=== PATIENT | male | born 1965 | race Caucasian/White ===

== ENCOUNTER 2023-12-05 23:29 | Emergency (ER) | payer OTHER ==
[2023-12-05 23:45] VITALS: RESP 18; TEMP 98
--- NOTE | 2023-12-06 00:24 | ED ---
General Adult HPI - General Chief complaint: Extremity Problem,Nontraumatic Stated complaint: ETOH, Swelling in ankles Time Seen by Provider: 12/05/23 23:41 Source: patient, RN notes reviewed, old records reviewed Mode of arrival: EMS Limitations: no limitations - History of Present Illness Initial comments: 58-year-old male presenting for evaluation of leg swelling, worse on the left, history of alcohol abuse. Patient is not complaining of chest pain or abdominal pain. Symptoms have been present for several months. He does admit to daily alcohol abuse. No fever. No dyspnea. - Related Data Previous Rx's Medication Instructions Recorded Cephalexin [Keflex] 500 mg PO Q6HR 10 Days #40 cap 12/06/23 Allergies Allergy/AdvReac Type Severity Reaction Status Date / Time No Known Allergies Allergy Verified 12/05/23 23:43 Review of Systems ROS Statement: Those systems with pertinent positive or pertinent negative responses have been documented in the HPI. ROS Other: All systems not noted in ROS Statement are negative. Past Medical History Past Medical History: No Reported History History of Any Multi-Drug Resistant Organisms: None Reported Additional Past Surgical History / Comment(s): teeth pulled Past Psychological History: No Psychological Hx Reported Smoking Status: Current every day smoker Past Alcohol Use History: Abuse, Daily, Heavy Past Drug Use History: Marijuana General Exam Limitations: no limitations General appearance: alert, appears intoxicated Head exam: Present: atraumatic, normocephalic Eye exam: Present: normal appearance, PERRL ENT exam: Present: normal exam Neck exam: Present: normal inspection. Absent: tenderness, meningismus Respiratory exam: Present: normal lung sounds bilaterally. Absent: respiratory distress, wheezes Cardiovascular Exam: Present: regular rate, normal rhythm GI/Abdominal exam: Present: soft. Absent: distended, tenderness Extremities exam: Present: pedal edema (Mild erythema, swelling worse on the left) Neurological exam: Present: alert, oriented X3, CN II-XII intact. Absent: motor sensory deficit Psychiatric exam: Present: normal affect, normal mood Skin exam: Present: warm, dry, intact Course Vital Signs 12/05/23 23:38 Temperature 98 F Pulse Rate 92 Respiratory 18 Rate Blood Pressure 150/87 O2 Sat by Pulse 97 Oximetry Medical Decision Making - Medical Decision Making Was pt. sent in by a medical professional or institution (, PA, [facility] CUTTER, urgent care, hospital, or snf...) When possible be specific @ -No Did you speak to anyone other than the patient for history (EMS, parent, family, police, friend...)? What history was obtained from this source @ -No Did you review nursing and triage notes (agree or disagree)? Why? @ -I reviewed and agree with nursing and triage notes Were old charts reviewed (outside hosp., previous admission, EMS record, old EKG, old radiological studies, urgent care reports/EKG's, snf records)? Report findings @ -No old charts were reviewed Differential Diagnosis DVT, cellulitis, chronic venous stasis EKG interpreted by me (3pts min.). @ -As above X-rays interpreted by me (1pt min.). @ -None done CT interpreted by me (1pt min.). @ -None done U/S interpreted by me (1pt. min.). @ -Ultrasound negative for DVT. What testing was considered but not performed or refused? (CT, X-rays, U/S, labs)? Why? @ -None What meds were considered but not given or refused? Why? @ -None Did you discuss the management of the patient with other professionals (professionals i.e. , PA, [facility] CUTTER, lab, RT, psych nurse, criminal justice social worker, art specialist, teacher, sewage reticulation drafting officer, field case manager)? Give summary @ -No Was smoking cessation discussed for >3mins.? @ -No Was critical care preformed (if so, how long)? @ -No Were there social determinants of health that impacted care today? How? (Homelessness, low income, unemployed, alcoholism, drug addiction, transportation, low edu. Level, literacy, decrease access to med. care, senior living, rehab)? @ -No Was there de-escalation of care discussed even if they declined (Discuss DNR or withdrawal of care, Hospice)? DNR status @ -No What co-morbidities impacted this encounter? (DM, HTN, Smoking, COPD, CAD, Cancer, CVA, ARF, Chemo, Hep., AIDS, mental health diagnosis, sleep apnea, morbid obesity)? @Daily alcohol abuse Was patient admitted / discharged? Hospital course, mention meds given and route, prescriptions, significant lab abnormalities, going to OR and other pertinent info. @Patient with leg swelling, erythema, normal laboratory testing, ultrasound negative. Patient will be covered for cellulitis and should follow closely with his primary care provider. Undiagnosed new problem with uncertain prognosis? @ -No Drug Therapy requiring intensive monitoring for toxicity (Heparin, Nitro, Insulin, Cardizem)? @ -No Were any procedures done? @ -No Diagnosis/symptom? @ -Cellulitis Acute, or Chronic, or Acute on Chronic? @ -Acute Uncomplicated (without systemic symptoms) or Complicated (systemic symptoms)? @ -Default Side effects of treatment? @ -No Exacerbation, Progression, or Severe Exacerbation? @ -No Poses a threat to life or bodily function? How? (Chest pain, [place], AL, pneumonia, PE, COPD, DKA, ARF, appy, cholecystitis, CVA, Diverticulitis, Homicidal, Suicidal, threat to staff... and all critical care pts) @ -No - Lab Data Result diagrams: 12/06/23 00:25 12/06/23 00:25 Lab Results 12/06/23 12/06/23 12/06/23 Range/Units 00:25 00:25 00:25 WBC 7.9 (3.8-10.6) k/uL RBC 4.58 (4.30-5.90) m/uL Hgb 14.8 (13.0-17.5) gm/dL Hct 45.9 (39.0-53.0) % MCV 100.2 H (80.0-100.0) fL MCH 32.2 (25.0-35.0) pg MCHC 32.2 (31.0-37.0) g/dL RDW 13.8 (11.5-15.5) % Plt Count 132 L (150-450) k/uL MPV 8.9 Neutrophils % 47 % Lymphocytes % 42 % Monocytes % 6 % Eosinophils % 2 % Basophils % 2 % Neutrophils # 3.7 (1.3-7.7) k/uL Lymphocytes # 3.3 (1.0-4.8) k/uL Monocytes # 0.4 (0-1.0) k/uL Eosinophils # 0.2 (0-0.7) k/uL Basophils # 0.1 (0-0.2) k/uL Macrocytosis Slight PT 11.9 (10.0-12.5) sec INR 1.1 (<1.2) APTT 26.2 (22.0-30.0) sec Sodium 139 (137-145) mmol/L Potassium 3.8 (3.5-5.1) mmol/L Chloride 108 H (98-107) mmol/L Carbon Dioxide 19 L (22-30) mmol/L Anion Gap 12 mmol/L BUN 7 L (9-20) mg/dL Creatinine 0.80 (0.66-1.25) mg/dL Est GFR (CKD-EPI)AfAm >90 (>60 ml/min/1.73 sqM) Est GFR (CKD-EPI)NonAf >90 (>60 ml/min/1.73 sqM) Glucose 82 (74-99) mg/dL Calcium 9.4 (8.4-10.2) mg/dL Total Bilirubin 0.9 (0.2-1.3) mg/dL AST 91 H (17-59) U/L ALT 37 (4-49) U/L Alkaline Phosphatase 80 (38-126) U/L Total Protein 6.9 (6.3-8.2) g/dL Albumin 3.7 (3.5-5.0) g/dL Disposition Clinical Impression: Cellulitis Disposition: HOME SELF-CARE Condition: Fair Instructions (If sedation given, give patient instructions): Cellulitis (ED) Prescriptions: Cephalexin [Keflex] 500 mg PO Q6HR 10 Days #40 cap Is patient prescribed a controlled substance at d/c from ED?: No Referrals: None,Stated [Primary Care Provider] - 1-2 days Time of Disposition: 02:02
[2023-12-06 00:37] LABS: Basophils # (A) 0.1 k/uL (0-0.2); Basophils % (A) 2 %; Eosinophils # (A) 0.2 k/uL (0-0.7); Eosinophils % (A) 2 %; HCT 45.9 % (39.0-53.0); HGB 14.8 gm/dL (13.0-17.5); Lymphocytes # (A) 3.3 k/uL (1.0-4.8); Lymphocytes % (A) 42 %; MCH 32.2 pg (25.0-35.0); MCHC 32.2 g/dL (31.0-37.0); MCV 100.2 fL (80.0-100.0); Macrocytosis Slight; Mean Platelet Volume 8.9; Monocytes # (A) 0.4 k/uL (0-1.0); Monocytes % (A) 6 %; Neutrophils # (A) 3.7 k/uL (1.3-7.7); Neutrophils % (A) 47 %; Platelet Count 132 k/uL (150-450); RBC 4.58 m/uL (4.30-5.90); RDW 13.8 % (11.5-15.5); WBC 7.9 k/uL (3.8-10.6)
[2023-12-06 00:44] LABS: Chloride 108 mmol/L (98-107)
[2023-12-06 00:46] LABS: ALT 37 U/L (4-49); AST 91 U/L (17-59); African American GFR (CKD) >90 (>60 ml/min/1.73 sqM); Albumin 3.7 g/dL (3.5-5.0); Alkaline Phosphatase 80 U/L (38-126); Anion Gap 12 mmol/L; Blood Urea Nitrogen 7 mg/dL (9-20); Calcium 9.4 mg/dL (8.4-10.2); Carbon Dioxide 19 mmol/L (22-30); Glucose 82 mg/dL (74-99); Non-African American GFR(CKD) >90 (>60 ml/min/1.73 sqM); Potassium 3.8 mmol/L (3.5-5.1); Sodium 139 mmol/L (137-145); Total Bilirubin 0.9 mg/dL (0.2-1.3); Total Protein 6.9 g/dL (6.3-8.2)
[2023-12-06 01:03] LABS: INR 1.1 (<1.2); Partial Thromboplastin Time 26.2 sec (22.0-30.0); Prothrombin Time 11.9 sec (10.0-12.5)
--- NOTE | 2023-12-06 01:33 | US ---
EXAM: US Duplex Left Lower Extremity Veins CLINICAL HISTORY: ITS.REASON US Reason: swelling TECHNIQUE: Real-time duplex ultrasound scan of the left lower extremity veins integrating B-mode two-dimensional vascular structure, Doppler spectral analysis, color flow Doppler imaging and compression. COMPARISON: No previous studies. FINDINGS: Deep veins: Imaging of the left lower extremity deep venous system revealed no deep venous thrombosis including the left common femoral vein, left superficial femoral vein, the left popliteal vein and the proximal calf veins. Superficial veins: Unremarkable. No thrombus in the visualized great saphenous vein. Soft tissues: No acute findings. No Sampson's cyst. IMPRESSION: No deep venous thrombosis left lower extremity.
[2023-12-06 02:55] VITALS: BP 136/76; PULSE 87
== END 2023-12-06 02:19 | disposition home or self-care (01) ==
LOC: EC 23:29
DX: L03.116 Cellulitis of left lower limb (principal); F17.200 Nicotine dependence, unspecified, uncomplicated; F12.90 Cannabis use, unspecified, uncomplicated
CPT/HCPCS: 36415; 80053; 85025; 85610; 85730; 99285

== ENCOUNTER 2024-03-23 18:38 | Inpatient (IN) | payer OTHER ==
[2024-03-23] MEDS: NOREPINEPHRINE 4 MG in SODIUM CHLORIDE 0.9% 250 ML IV ONE (18:48)
[2024-03-23] MEDS: SODIUM CHLORIDE 0.9% 1,000 ML IV STA ×2 (18:48→20:03)
--- NOTE | 2024-03-23 18:59 | ED ---
CPR HPI - General Chief Complaint: Cardiac Arrest/CPR Stated Complaint: cardiac arrest Source: EMS, RN notes reviewed, old records reviewed Mode of arrival: EMS Limitations: no limitations, altered mental status, physical limitation - History of Present Illness Initial Comments: This is a 58-year-old male to the ER for evaluation today for evaluation of sudden cardiac arrest. Brought in by EMS with pulse pulseless apneic cardiac arrest was given ACLS protocol in the field had return of spontaneous circulation around 1520 minutes upwards of 25 minutes. Patient was hanging out with some friends when he had an episode of falling he fell down may have hit his head unsure the bystanders were unaware if patient was unresponsive prior to the fall or not patient has a long medical history, patient does not seek medical care, patient does have history of alcohol, cigarette smoking, recent exposure to coronavirus MD Complaint: found unresponsive, stopped breathing, collapsed during rest -: hour(s) Place: home Bystander CPR Performed: Yes AED Applied by Bystander/President And Chief Commercial Officer: Yes Shock Advised: No Initial Findings in the Field: unresponsive, agonal ROSC in the Field: Yes Associated Injuries: Yes Associated Symptoms: abdominal pain, shortness of breath, palpitations Treatments Prior to Arrival: intubation, other airway device - Related Data Home Medications Medication Instructions Recorded Confirmed Budesonide/Formoterol Fumarate 2 puff INHALATION RT-BID 03/23/24 03/23/24 [Symbicort 160-4.5 Mcg Inhaler] Furosemide [Lasix] 20 mg PO DAILY 03/23/24 03/23/24 Potassium Chloride ER [K-Dur 20] 20 meq PO DAILY 03/23/24 03/23/24 Allergies Allergy/AdvReac Type Severity Reaction Status Date / Time No Known Allergies Allergy Verified 03/23/24 19:45 Review of Systems ROS Statement: Those systems with pertinent positive or pertinent negative responses have been documented in the HPI. ROS Other: All systems not noted in ROS Statement are negative. Past Medical History Past Medical History: No Reported History History of Any Multi-Drug Resistant Organisms: None Reported Additional Past Surgical History / Comment(s): teeth pulled Past Psychological History: No Psychological Hx Reported Smoking Status: Current every day smoker Past Alcohol Use History: Abuse, Daily, Heavy Past Drug Use History: Marijuana General Exam Limitations: altered mental status, physical limitation General appearance: anxious, in distress Head exam: Present: atraumatic, normocephalic, normal inspection Eye exam: Present: normal appearance, PERRL, EOMI. Absent: scleral icterus, conjunctival injection, periorbital swelling ENT exam: Present: normal exam, mucous membranes moist Neck exam: Present: normal inspection. Absent: tenderness, meningismus, lymphadenopathy Respiratory exam: Present: normal lung sounds bilaterally, wheezes. Absent: respiratory distress, rales, rhonchi, stridor Cardiovascular Exam: Present: regular rate, normal rhythm, normal heart sounds. Absent: systolic murmur, diastolic murmur, rubs, gallop, clicks GI/Abdominal exam: Present: soft, normal bowel sounds. Absent: distended, tenderness, guarding, rebound, rigid Extremities exam: Present: normal inspection, full ROM, normal capillary refill. Absent: tenderness, pedal edema, joint swelling, calf tenderness Back exam: Present: normal inspection Neurological exam: Present: alert, oriented X3, CN II-XII intact Psychiatric exam: Present: normal affect, normal mood Skin exam: Present: warm, dry, intact, normal color. Absent: rash Course Vital Signs 03/23/24 03/23/24 03/23/24 18:41 18:47 18:50 Temperature Pulse Rate 42 L 68 92 Respiratory 6 L 22 Rate Blood Pressure 45/23 67/42 100/63 O2 Sat by Pulse 56 L 99 Oximetry Fraction of Inspired Oxygen (FIO2) 03/23/24 03/23/24 03/23/24 18:55 19:00 19:05 Temperature 97.4 F L Pulse Rate 102 H 104 H Respiratory 20 22 Rate Blood Pressure 125/73 125/73 131/71 O2 Sat by Pulse 99 100 Oximetry Fraction of Inspired Oxygen (FIO2) 03/23/24 03/23/24 03/23/24 19:10 19:25 19:26 Temperature Pulse Rate 103 H 98 Respiratory 21 23 Rate Blood Pressure 131/71 99/65 O2 Sat by Pulse 100 100 Oximetry Fraction of 100 Inspired Oxygen (FIO2) 03/23/24 03/23/24 03/23/24 19:30 19:35 19:40 Temperature Pulse Rate 97 105 H 94 Respiratory 18 13 27 H Rate Blood Pressure 99/64 94/60 89/48 O2 Sat by Pulse 100 99 100 Oximetry Fraction of Inspired Oxygen (FIO2) 03/23/24 03/23/24 03/23/24 19:45 19:50 19:55 Temperature Pulse Rate 94 93 94 Respiratory 47 H 23 23 Rate Blood Pressure 79/57 77/51 74/51 O2 Sat by Pulse 100 99 100 Oximetry Fraction of Inspired Oxygen (FIO2) 03/23/24 03/23/24 03/23/24 20:00 20:05 20:10 Temperature Pulse Rate 93 92 95 Respiratory 21 14 31 H Rate Blood Pressure 75/47 70/48 76/51 O2 Sat by Pulse 100 99 98 Oximetry Fraction of Inspired Oxygen (FIO2) 03/23/24 03/23/24 03/23/24 20:15 20:20 20:25 Temperature Pulse Rate 94 96 96 Respiratory 24 21 20 Rate Blood Pressure 77/50 78/52 80/51 O2 Sat by Pulse 100 100 100 Oximetry Fraction of Inspired Oxygen (FIO2) 03/23/24 03/23/24 03/23/24 20:30 20:35 20:40 Temperature Pulse Rate 95 96 96 Respiratory 23 20 20 Rate Blood Pressure 84/54 80/50 81/52 O2 Sat by Pulse 99 99 100 Oximetry Fraction of Inspired Oxygen (FIO2) 03/23/24 03/23/24 03/23/24 20:45 20:50 21:10 Temperature Pulse Rate 96 95 97 Respiratory 20 20 24 Rate Blood Pressure 88/53 81/55 81/55 O2 Sat by Pulse 100 100 100 Oximetry Fraction of Inspired Oxygen (FIO2) 03/23/24 03/23/24 03/23/24 21:15 21:20 21:25 Temperature Pulse Rate 97 96 98 Respiratory 20 24 24 Rate Blood Pressure 80/50 78/47 81/53 O2 Sat by Pulse 100 100 99 Oximetry Fraction of Inspired Oxygen (FIO2) 03/23/24 03/23/24 03/23/24 21:30 21:35 21:40 Temperature Pulse Rate 99 100 101 H Respiratory 19 17 16 Rate Blood Pressure 78/53 82/55 84/53 O2 Sat by Pulse 100 100 99 Oximetry Fraction of Inspired Oxygen (FIO2) 03/23/24 03/23/24 03/23/24 21:45 21:50 21:55 Temperature Pulse Rate 101 H 102 H 104 H Respiratory 18 13 24 Rate Blood Pressure 87/63 93/53 85/58 O2 Sat by Pulse 100 100 100 Oximetry Fraction of Inspired Oxygen (FIO2) 03/23/24 03/23/24 22:00 22:08 Temperature 96.9 F L Pulse Rate 103 H 110 H Respiratory 20 20 Rate Blood Pressure 85/47 85/47 O2 Sat by Pulse 100 96 Oximetry Fraction of 100 Inspired Oxygen (FIO2) - Reevaluation(s) Reevaluation #1: 03/24/24 12:30 Record is reviewed Reevaluation #2: 03/24/24 12:30 Patient symptoms are unchanged Reevaluation #3: 03/24/24 12:30 Informed of results and questions answered Reevaluation #4: Was pt. sent in by a medical professional or institution (, [facility], [facility], urgent care, hospital, or longterm...) When possible be specific @ -no Did you speak to anyone other than the patient for history (EMS, parent, family, police, friend...)? What history was obtained from this source @ -no Did you review nursing and triage notes (agree or disagree)? Why? @ -agree Are old charts reviewed (outside hosp., previous admission, EMS record, old EKG, old radiological studies, urgent care reports/EKG's, longterm records)? Report findings @ -yes Differential Diagnosis (chest pain, altered mental status, abdominal pain women, abdominal pain men, vaginal bleeding, weakness, fever, dyspnea, syncope, headac he, dizziness, GI bleed, back pain, seizure, CVA, palpatations, mental health, musculoskeletal)? @ -prior EKG interpreted by me (3pts min.). @ -yes X-rays interpreted by me (1pt min.). @ -yes negative for acute disease CT interpreted by me (1pt min.). @ -Yes negative for acute disease U/S interpreted by me (1pt. min.). @ -no What testing was considered but not performed or refused? (CT, X-rays, U/S, labs)? Why? @ -none What meds were considered but not given or refused? Why? @ -none Did you discuss the management of the patient with other professionals (professionals i.e. [facility] Sanchez, [facility], lab, RT, psych nurse, home health care social worker, mechanical service representative, teacher, preventive medicine officer, case management assistant)? Give summary @ -no Was smoking cessation discussed for >3mins.? @ -no Was critical care preformed (if so, how long)? @ -yes31 Were there social determinants of health that impacted care today? How? (Homelessness, low income, unemployed, alcoholism, drug addiction, transportation, low edu. Level, literacy, decrease access to med. care, long term, rehab)? @ -none Was there de-escalation of care discussed even if they declined (Discuss DNR or withdrawal of care, Hospice)? DNR status @ -no What co-morbidities impacted this encounter? (DM, HTN, Smoking, COPD, CAD, Cancer, CVA, ARF, Chemo, Hep., AIDS, mental health diagnosis, sleep apnea, morbid obesity)? @ -none Was patient admitted / discharged? Hospital course, mention meds given and route, prescriptions, significant lab abnormalities, going to OR and other pertinent info. @ - 58 male to ER for evaluation of prehospital cardiac arrest with return of spontaneous circulation. Patient has recent coronavirus exposure per family at bedside, patient had what they believe is a fall unsure if it was a trip and fall or if patient passed out before falling prompting call to EMS as he was unresponsive. Patient did return spontaneous circulation and her to the hospital and has maintained pulses here in the emergency department with mild neurological activity requiring sedation Admitted Undiagnosed new problem with uncertain prognosis? @ -no Drug Therapy requiring intensive monitoring for toxicity (Heparin, Nitro, Insulin, Cardizem)? @ -no Were any procedures done? @ -no Diagnosis/symptom? @ -Cardiopulmonary arrest Acute, or Chronic, or Acute on Chronic? @ -Acute Uncomplicated (without systemic symptoms) or Complicated (systemic symptoms)? @ -Complicated Side effects of treatment? @ -no Exacerbation, Progression, or Severe Exacerbation? @ -exacerbation Poses a threat to life or bodily function? How? (Chest pain, [place], [place], pneumonia, PE, COPD, DKA, ARF, appy, cholecystitis, CVA, Diverticulitis, Homicidal, Suicidal, threat to staff... and all critical care pts) @ -yes - Consultations Consultation #1: With ICU patient accepted to the ICU for admission Procedures - Central Line Placement Right IJ Consent Obtained: verbal consent Patient Placed on Monitor/Pulse Ox: Yes Prep: mask, gown, gloves Central Line Prep: Povidone-Iodine 1% Local Anesthesia Used: Lidocaine 1% Ultrasound Used for Placement: Yes Central Line Lumen Inserted: triple Bloods Obtained for Lab: Yes Central Line Position: good blood return, all ports aspirated, flushed, capped Dressing Applied: Tegaderm Patient Tolerated Procedure: well Complications: none - Intubation Sedative: Versed Laryngoscope: Eliza Size: 4 ET Tube Size: 7.5 Tube Secured Location: teeth Tube Placement Confirmation: visualized tube passing through cords, equal breath sounds bilaterally Patient Tolerated Procedure: well Intubation Complications: none Medical Decision Making - Medical Decision Making 58 male to ER for evaluation of prehospital cardiac arrest with return of spontaneous circulation. Patient has recent coronavirus exposure per family at bedside, patient had what they believe is a fall unsure if it was a trip and fall or if patient passed out before falling prompting call to EMS as he was unresponsive. Patient did return spontaneous circulation and her to the hospital and has maintained pulses here in the emergency department with mild neurological activity requiring sedation - Lab Data Result diagrams: 03/24/24 03:50 03/24/24 07:17 Lab Results 03/23/24 03/23/24 03/23/24 Range/Units 18:57 19:01 19:01 WBC 6.9 (3.8-10.6) k/uL RBC 4.39 (4.30-5.90) m/uL Hgb 14.5 (13.0-17.5) gm/dL Hct 49.1 (39.0-53.0) % MCV 111.7 H (80.0-100.0) fL MCH 32.9 (25.0-35.0) pg MCHC 29.5 L (31.0-37.0) g/dL RDW 13.8 (11.5-15.5) % Plt Count 193 (150-450) k/uL MPV 10.1 Neutrophils % (Manual) 50 % Lymphocytes % (Manual) 26 % Monocytes % (Manual) 24 % Eosinophils % (Manual) 1 % Myelocytes % 1 % Neutrophils # (Manual) 3.45 (1.3-7.7) k/uL Lymphocytes # (Manual) 1.79 (1.0-4.8) k/uL Monocytes # (Manual) 1.66 H (0-1.0) k/uL Eosinophils # (Manual) 0.07 (0-0.7) k/uL Myelocytes # (Manual) 0.07 H (0) k/uL Nucleated RBCs 3 H (0-0) /100 WBC Manual Slide Review Performed Hypochromasia Marked Macrocytosis Marked A PT 11.8 (10.0-12.5) sec INR 1.1 (<1.2) APTT 43.7 H (22.0-30.0) sec VBG pH (7.31-7.41) VBG pCO2 (37-51) mmHg VBG HCO3 (24-28) mmol/L Sodium (137-145) mmol/L Potassium (3.5-5.1) mmol/L Chloride (98-107) mmol/L Carbon Dioxide (22-30) mmol/L Anion Gap mmol/L BUN (9-20) mg/dL Creatinine (0.66-1.25) mg/dL Est GFR (CKD-EPI)AfAm (>60 ml/min/1.73 sqM) Est GFR (CKD-EPI)NonAf (>60 ml/min/1.73 sqM) Glucose (74-99) mg/dL Lactic Ac Sepsis Rflx Plasma Lactic Acid Audi (0.7-2.0) mmol/L Calcium (8.4-10.2) mg/dL Phosphorus (2.5-4.5) mg/dL Magnesium (1.6-2.3) mg/dL Total Bilirubin (0.2-1.3) mg/dL AST (17-59) U/L ALT (4-49) U/L Alkaline Phosphatase (38-126) U/L Troponin I (0.000-0.034) ng/mL NT-Pro-B Natriuret Pep pg/mL Total Protein (6.3-8.2) g/dL Albumin (3.5-5.0) g/dL Urine Color Urine Appearance (Clear) Urine pH (5.0-8.0) Ur Specific [place] (1.001-1.035) Urine Protein (Negative) Urine Glucose (UA) (Negative) Urine Ketones (Negative) Urine Blood (Negative) Urine Nitrite (Negative) Urine Bilirubin (Negative) Urine Urobilinogen (<2.0) mg/dL Ur Leukocyte Esterase (Negative) Urine RBC (0-5) /hpf Urine WBC (0-5) /hpf Ur Squamous Epith Cells (0-4) /hpf Amorphous Sediment (None) /hpf Urine Bacteria (None) /hpf Urine Mucus (None) /hpf Influenza Type A (PCR) Not Detected (Not Detectd) Influenza Type B (PCR) Not Detected (Not Detectd) RSV (PCR) Not Detected (Not Detectd) SARS-CoV-2 (PCR) Detected A (Not Detectd) 03/23/24 03/23/24 03/23/24 Range/Units 19:01 19:01 19:09 WBC (3.8-10.6) k/uL RBC (4.30-5.90) m/uL Hgb (13.0-17.5) gm/dL Hct (39.0-53.0) % MCV (80.0-100.0) fL MCH (25.0-35.0) pg MCHC (31.0-37.0) g/dL RDW (11.5-15.5) % Plt Count (150-450) k/uL MPV Neutrophils % (Manual) % Lymphocytes % (Manual) % Monocytes % (Manual) % Eosinophils % (Manual) % Myelocytes % % Neutrophils # (Manual) (1.3-7.7) k/uL Lymphocytes # (Manual) (1.0-4.8) k/uL Monocytes # (Manual) (0-1.0) k/uL Eosinophils # (Manual) (0-0.7) k/uL Myelocytes # (Manual) (0) k/uL Nucleated RBCs (0-0) /100 WBC Manual Slide Review Hypochromasia Macrocytosis PT (10.0-12.5) sec INR (<1.2) APTT (22.0-30.0) sec VBG pH (7.31-7.41) VBG pCO2 (37-51) mmHg VBG HCO3 (24-28) mmol/L Sodium 138 (137-145) mmol/L Potassium 6.7 H* (3.5-5.1) mmol/L Chloride 104 (98-107) mmol/L Carbon Dioxide 15 L (22-30) mmol/L Anion Gap 19 mmol/L BUN 51 H (9-20) mg/dL Creatinine 2.05 H (0.66-1.25) mg/dL Est GFR (CKD-EPI)AfAm 40 (>60 ml/min/1.73 sqM) Est GFR (CKD-EPI)NonAf 35 (>60 ml/min/1.73 sqM) Glucose 100 H (74-99) mg/dL Lactic Ac Sepsis Rflx Plasma Lactic Acid Audi 11.3 H* (0.7-2.0) mmol/L Calcium 11.9 H (8.4-10.2) mg/dL Phosphorus 12.9 H* (2.5-4.5) mg/dL Magnesium 3.1 H (1.6-2.3) mg/dL Total Bilirubin 0.9 (0.2-1.3) mg/dL AST 116 H (17-59) U/L ALT 39 (4-49) U/L Alkaline Phosphatase 60 (38-126) U/L Troponin I 0.106 H* (0.000-0.034) ng/mL NT-Pro-B Natriuret Pep 4650 pg/mL Total Protein 6.2 L (6.3-8.2) g/dL Albumin 3.1 L (3.5-5.0) g/dL Urine Color Urine Appearance (Clear) Urine pH (5.0-8.0) Ur Specific [place] (1.001-1.035) Urine Protein (Negative) Urine Glucose (UA) (Negative) Urine Ketones (Negative) Urine Blood (Negative) Urine Nitrite (Negative) Urine Bilirubin (Negative) Urine Urobilinogen (<2.0) mg/dL Ur Leukocyte Esterase (Negative) Urine RBC (0-5) /hpf Urine WBC (0-5) /hpf Ur Squamous Epith Cells (0-4) /hpf Amorphous Sediment (None) /hpf Urine Bacteria (None) /hpf Urine Mucus (None) /hpf Influenza Type A (PCR) (Not Detectd) Influenza Type B (PCR) (Not Detectd) RSV (PCR) (Not Detectd) SARS-CoV-2 (PCR) (Not Detectd) 03/23/24 03/23/24 03/23/24 Range/Units 19:16 19:42 19:44 WBC (3.8-10.6) k/uL RBC (4.30-5.90) m/uL Hgb (13.0-17.5) gm/dL Hct (39.0-53.0) % MCV (80.0-100.0) fL MCH (25.0-35.0) pg MCHC (31.0-37.0) g/dL RDW (11.5-15.5) % Plt Count (150-450) k/uL MPV Neutrophils % (Manual) % Lymphocytes % (Manual) % Monocytes % (Manual) % Eosinophils % (Manual) % Myelocytes % % Neutrophils # (Manual) (1.3-7.7) k/uL Lymphocytes # (Manual) (1.0-4.8) k/uL Monocytes # (Manual) (0-1.0) k/uL Eosinophils # (Manual) (0-0.7) k/uL Myelocytes # (Manual) (0) k/uL Nucleated RBCs (0-0) /100 WBC Manual Slide Review Hypochromasia Macrocytosis PT (10.0-12.5) sec INR (<1.2) APTT (22.0-30.0) sec VBG pH 6.90 L* (7.31-7.41) VBG pCO2 78 H* (37-51) mmHg VBG HCO3 15 L (24-28) mmol/L Sodium (137-145) mmol/L Potassium (3.5-5.1) mmol/L Chloride (98-107) mmol/L Carbon Dioxide (22-30) mmol/L Anion Gap mmol/L BUN (9-20) mg/dL Creatinine (0.66-1.25) mg/dL Est GFR (CKD-EPI)AfAm (>60 ml/min/1.73 sqM) Est GFR (CKD-EPI)NonAf (>60 ml/min/1.73 sqM) Glucose (74-99) mg/dL Lactic Ac Sepsis Rflx Y Plasma Lactic Acid Audi (0.7-2.0) mmol/L Calcium (8.4-10.2) mg/dL Phosphorus (2.5-4.5) mg/dL Magnesium (1.6-2.3) mg/dL Total Bilirubin (0.2-1.3) mg/dL AST (17-59) U/L ALT (4-49) U/L Alkaline Phosphatase (38-126) U/L Troponin I (0.000-0.034) ng/mL NT-Pro-B Natriuret Pep pg/mL Total Protein (6.3-8.2) g/dL Albumin (3.5-5.0) g/dL Urine Color Yellow Urine Appearance Cloudy (Clear) Urine pH 5.5 (5.0-8.0) Ur Specific [place] 1.015 (1.001-1.035) Urine Protein 1+ H (Negative) Urine Glucose (UA) Negative (Negative) Urine Ketones Negative (Negative) Urine Blood Negative (Negative) Urine Nitrite Negative (Negative) Urine Bilirubin Negative (Negative) Urine Urobilinogen <2.0 (<2.0) mg/dL Ur Leukocyte Esterase Negative (Negative) Urine RBC 2 (0-5) /hpf Urine WBC 2 (0-5) /hpf Ur Squamous Epith Cells 1 (0-4) /hpf Amorphous Sediment Rare H (None) /hpf Urine Bacteria Occasional H (None) /hpf Urine Mucus Rare H (None) /hpf Influenza Type A (PCR) (Not Detectd) Influenza Type B (PCR) (Not Detectd) RSV (PCR) (Not Detectd) SARS-CoV-2 (PCR) (Not Detectd) - EKG Data -: EKG Interpreted by Me (EKG is sinus 87 KS 120 QRS 98 QTc 383) - Radiology Data Radiology results: report reviewed (CT Brain negative for acute disease chest x- ray positive ET tube positive central line), image reviewed Critical Care Time Critical Care Time: Yes Total Critical Care Time: 31 Disposition Clinical Impression: Acute respiratory failure, Cardiac arrest, Cardiopulmonary arrest, Hypoxia, Hypotension Disposition: ADMITTED IP TO THIS [facility] Condition: Critical Is patient prescribed a controlled substance at d/c from ED?: No
[2024-03-23] MEDS: SODIUM CHLORIDE 0.9% 1,000 ML IV ONE (19:00)
[2024-03-23 19:20] LABS: African American GFR (CKD) 40 (>60 ml/min/1.73 sqM); Albumin 3.1 g/dL (3.5-5.0); Anion Gap 19 mmol/L; Blood Urea Nitrogen 51 mg/dL (9-20); Calcium 11.9 mg/dL (8.4-10.2); Carbon Dioxide 15 mmol/L (22-30); Chloride 104 mmol/L (98-107); Glucose 100 mg/dL (74-99); Non-African American GFR(CKD) 35 (>60 ml/min/1.73 sqM); Sodium 138 mmol/L (137-145); Total Bilirubin 0.9 mg/dL (0.2-1.3); Total Protein 6.2 g/dL (6.3-8.2)
[2024-03-23 19:29] LABS: NT-Pro-B-Type Natriuretic Pept 4650 pg/mL
[2024-03-23 19:41] LABS: Amorphous Sediment,Urine Rare /hpf; Appearance,Urine Cloudy (Clear); Bacteria,Urine Occasional /hpf; Bilirubin,Urine Negative (Negative); Blood,Urine Negative (Negative); Color,Urine Yellow; Glucose,Urine (UA) Negative (Negative); Ketones,Urine Negative (Negative); Leukocyte Esterase,Urine Negative (Negative); Mucus,Urine Rare /hpf; Nitrite,Urine Negative (Negative); PH, Urine 5.5 (5.0-8.0); Protein,Urine 1+ (Negative); RBC,Urine 2 /hpf (0-5); Specific Gravity,Urine 1.015 (1.001-1.035); Squamous Epithelial Cell,Urine 1 /hpf (0-4); Urobilinogen,Urine <2.0 mg/dL (<2.0); WBC,Urine 2 /hpf (0-5)
[2024-03-23 19:43] LABS: AST 116 U/L (17-59); Phosphorus 12.9 mg/dL (2.5-4.5); Potassium 6.7 mmol/L (3.5-5.1)
[2024-03-23 19:44] LABS: ALT 39 U/L (4-49); Alkaline Phosphatase 60 U/L (38-126); HCT 49.1 % (39.0-53.0); HGB 14.5 gm/dL (13.0-17.5); Hypochromasia Marked; MCH 32.9 pg (25.0-35.0); MCHC 29.5 g/dL (31.0-37.0); MCV 111.7 fL (80.0-100.0); Macrocytosis Marked; Magnesium 3.1 mg/dL (1.6-2.3); Mean Platelet Volume 10.1; RBC 4.39 m/uL (4.30-5.90); RDW 13.8 % (11.5-15.5)
[2024-03-23] MEDS ORDERED: NALOXONE 0.4 MG/ML 1 ML VIAL IV PRN (19:49)
[2024-03-23] MEDS ORDERED: LORazepam 2 MG/ML INJ IV PRN ×2 (19:49)
[2024-03-23] MEDS ORDERED: MORPHINE SULFATE 2 MG/ML SYRINGE IV PRN (19:49)
--- NOTE | 2024-03-23 19:50 | XR ---
EXAMINATION TYPE: XR chest 1V portable DATE OF EXAM: 03/23/2024 Comparison: None Clinical History: 58-year-old male intubation Findings: The tip of the ET tube is noted just below the level of the thoracic inlet. Consider slight further a dvancement by approximately 2.5 cm. NG tube in the further advanced by approximately 8 cm at the side hole is above the GE junction and the tip is just below the GE junction. Diffuse patchy interstitial opacities throughout. Heart upper limits of normal in size. Impression: 1. ET tube by 2.5 cm in reassessment follow-up. Currently, the tip is just below the thoracic inlet l evel. 2. Advance the NG tube by 8 cm so that the sidehole enters the stomach. 3. Diffuse interstitial and patchy opacities. Correlate as to etiology. Some considerations include a typical pneumonias, interstitial pneumonitis, hypersensitivity pneumonitis, aspiration, multifocal pn eumonia, and patchy pulmonary edema.
[2024-03-23] MEDS: DEXTROSE 5%-0.45% NACL 1,000 ML IV SCH (20:12)
[2024-03-23] MEDS: MIDAZOLAM 1 MG/ML 5 ML VIAL IV STA ×2 (20:18→21:11)
[2024-03-23 20:22] LABS: INR 1.1 (<1.2); Partial Thromboplastin Time 43.7 sec (22.0-30.0); Prothrombin Time 11.8 sec (10.0-12.5)
[2024-03-23 20:25] LABS: Eosinophils # (M) 0.07 k/uL (0-0.7); Lymphocytes # (M) 1.79 k/uL (1.0-4.8); Monocytes # (M) 1.66 k/uL (0-1.0); Myelocytes # (M) 0.07 k/uL (0); Myelocytes % 1 %; Neutrophils # (M) 3.45 k/uL (1.3-7.7); Neutrophils % (M) 50 %; Nucleated Red Blood Cells 3 /100 WBC (0-0); Total Cells Counted 200; WBC 6.9 k/uL (3.8-10.6)
[2024-03-23 20:31] LABS: Platelet Count 193 k/uL (150-450)
[2024-03-23] MEDS: IPRATROPIUM-ALBUTEROL 3 ML NEB INHALATION SCH (20:36)
[2024-03-23 21:04] LABS: VBG PH 6.9 (7.31-7.41)
--- NOTE | 2024-03-23 21:46 | CT ---
EXAMINATION TYPE: CT brain darell handy DATE OF EXAM: 03/23/2024 COMPARISON: None HISTORY: 58-year-old female with confusion, post cardiac arrest, ams. CT DLP: 1377.4 mGycm Automated exposure control for dose reduction was used. Technique: Examination of the head was done in axial plane without intravenous contrast. Coronal and sagittal reconstructions performed. CT of the cervical spine was obtained in axial plane without intravenous injection of contrast mater ial. Coronal and sagittal reformatted images were obtained from the axial views for evaluation of f ractures, spinal alignment and canal. FINDINGS: Head: Possible subtle loss of castillo-white matter differentiation and superior left precentral high-risk, axi al image 44 and lateral left frontal lobe, axial image 37 through 40. No evidence for acute intracranial hemorrhage, mass, mass effect, or extra-axial fluid collection. No hydrocephalus. No effacement of basal subarachnoid cisterns. Moderate to severe mucosal thickening throughout the paranasal sinuses. The patient is intubated. Mas toid air cells are pneumatized. Orbits and globes are intact. Secretions filling the posterior nasoph arynx. Cervical spine: Patient's head is turned towards the right. Reversal normal cervical lordosis. Mild to moderate spond ylitic change at mid to lower cervical spine. There is motion but no definite acute fracture or malal ignment seen. Moderate bilateral neural foraminal stenosis, right greater than left at C5-C6 and mild -to-moderate on the right at C6-C7. Emphysematous change in the visualized lungs. Sagittal and coronal reformatted images confirm above findings. COMBINED IMPRESSION: 1. Possible early loss of castillo-white matter differentiation along a couple areas in the left frontal lobe as mentioned above. Ischemia with early acute infarct not excluded at this time. Follow-up CT or MRI. 2. No evidence for acute intracranial hemorrhage, mass effect, or midline shift. 3. No acute fracture or malalignment of the cervical spine. Mild to moderate spondylotic change. COPD in the visualized upper lungs.
--- NOTE | 2024-03-23 22:21 | XR ---
EXAMINATION TYPE: XR chest 1V confirm line [facility] DATE OF EXAM: 03/23/2024 COMPARISON: Earlier today HISTORY: 58-year-old male for central line placement TECHNIQUE: Single frontal view of the chest is obtained. FINDINGS: ET tube tip at the level of the thoracic inlet. Advancement by 2.5 cm. NG tube tip is just below the GE junction level. Recommend further advancement into the stomach. Right IJ CVC tip at the cavoatrial junction. No pneumothorax. Multifocal patchy interstitial opacities persist. No pleural e ffusion. Heart normal size. IMPRESSION: 1. Advance the ET tube by 2.5 cm. 2. Advance the NG tube further by 8 cm so that the sidehole enters the stomach. 3. Right IJ CVC tip at the cavoatrial junction. 4. Ongoing diffuse interstitial and patchy infiltrates.
[2024-03-23 22:23] LABS: Glucose,Whole Blood 102 mg/dL (70-110)
[2024-03-23 22:57] LABS: ABG Base Excess -16.8 mmol/L; ABG HCO3 15 mmol/L (21-25); ABG Oxygen Saturation 99.6 % (94-97); ABG PCO2 62 mmHg (35-45); ABG TCO2 17 mmol/L (19-24); Allen Test Performed? Yes
[2024-03-23 23:01] LABS: ABG PO2 >420 mmHg (83-108)
[2024-03-24] MEDS: AZITHROMYCIN 500 MG in SODIUM CHLORIDE 0.9% 250 ML IVPB ONE (01:13)
[2024-03-24] MEDS: CALCIUM GLUCONATE IN NACL 1 GM in SALINE 1 100ML.BAG IVPB ONE (01:18)
[2024-03-24] MEDS: INSULIN REGULAR 100 UNIT/ML VIAL (IV) IV ONE (01:18)
[2024-03-24] MEDS: SODIUM ZIRCONIUM CYCLOSILICATE 10 GM PACKET PO ONE (01:18)
[2024-03-24] MEDS: DEXTROSE 50% SYRINGE 50 ML IVP STA (01:18)
[2024-03-24] MEDS: LORazepam 2 MG/ML INJ IV PRN (01:18)
[2024-03-24] MEDS: SODIUM BICARB 8.4% 50 ML SYR (1 MEQ/ML) IV STA (01:19)
[2024-03-24] MEDS: DEXTROSE 5% IN WATER 1,000 ML with SODIUM BICARB (1 MEQ/ML) 150 ML IV SCH (01:33)
[2024-03-24] MEDS: AZITHROMYCIN 500 MG in SODIUM CHLORIDE 0.9% 250 ML IVPB STA (01:34)
[2024-03-24] MEDS: NOREPINEPHRINE 32 MG in SODIUM CHLORIDE 0.9% 218 ML IV ONE (01:36)
[2024-03-24 04:16] LABS: African American GFR (CKD) 35 (>60 ml/min/1.73 sqM); Albumin 2.6 g/dL (3.5-5.0); Alkaline Phosphatase 142 U/L (38-126); Anion Gap 15 mmol/L; Blood Urea Nitrogen 59 mg/dL (9-20); Calcium 9.6 mg/dL (8.4-10.2); Carbon Dioxide 19 mmol/L (22-30); Chloride 109 mmol/L (98-107); Glucose 100 mg/dL (74-99); Magnesium 2.5 mg/dL (1.6-2.3); Non-African American GFR(CKD) 30 (>60 ml/min/1.73 sqM); Phosphorus 4.5 mg/dL (2.5-4.5); Potassium 3.1 mmol/L (3.5-5.1); Sodium 143 mmol/L (137-145); Total Bilirubin 2.5 mg/dL (0.2-1.3); Total Protein 5.4 g/dL (6.3-8.2)
[2024-03-24 04:27] LABS: HGB 15.2 gm/dL (13.0-17.5); Hypochromasia Moderate; MCH 34.2 pg (25.0-35.0); MCV 110.2 fL (80.0-100.0); Mean Platelet Volume 9.9; Platelet Count 107 k/uL (150-450); RBC 4.44 m/uL (4.30-5.90); RDW 14.4 % (11.5-15.5)
[2024-03-24 04:28] LABS: ALT 328 U/L (4-49)
[2024-03-24] MEDS: SODIUM CHLORIDE 0.9% 1,000 ML IV ONE (04:50)
[2024-03-24 04:55] LABS: AST 1790 U/L (17-59)
[2024-03-24 06:10] LABS: Macrocytosis Marked
[2024-03-24 07:10] VITALS: BP 112/72
[2024-03-24 07:53] LABS: Band Neutrophils % 12 %; Neutrophils % (M) 74 %; Nucleated Red Blood Cells 6 /100 WBC (0-0); Total Cells Counted 100
[2024-03-24 07:54] LABS: Large Platelets Present; Lymphocytes # (M) 2.04 k/uL (1.0-4.8); Monocytes # (M) 0.34 k/uL (0-1.0)
[2024-03-24 07:55] LABS: Polychromasia Present
--- NOTE | 2024-03-24 08:46 | XR ---
EXAMINATION TYPE: XR chest 1V portable DATE OF EXAM: 03/24/2024 Comparison: 03/23/2024 Clinical History: 58-year-old male Intubated Findings: Right IJ CVC tip at the upper right atrium. ET tube tip at the medial clavicular heads. NG tube has b een advanced with sidehole just below the GE junction level. Heart normal size. Diffuse interstitial and patchy bilateral opacities persist. Prominent skinfold projecting at the right upper lung. Impression: 1. ET tube tip at the medial clavicular heads. NG tube satisfactorily advanced. 2. Ongoing diffuse bilateral interstitial and patchy infiltrates.
[2024-03-24] MEDS: VASOPRESSIN 60 UNIT in SODIUM CHLORIDE 0.9% 150 ML IV SCH (08:55)
--- NOTE | 2024-03-24 09:53 | P.NPCON ---
History of Present Illness - Reason for Consult acute renal failure - History of Present Illness Reason for consultation: Acute kidney injury History of present illness: Patient is a 58-year-old male seen in renal consultation for acute kidney injury. Patient was found down and was noted to be in cardiac arrest. He underwent CPR and received 3 doses of epinephrine. Patient is currently intubated. He is on Levophed as well as vasopressin. Potassium was as high as 6.7 and improved with medical management. It is in fact now low and being replaced cautiously. Patient is oliguric. Patient also seems to be having seizure-like activity. Creatinine is 2.27 today. I do not see any NSAIDs on his home medication list. No history of diabetes. He was on Lasix and potassium supplementation which are currently held. He is currently on a bicarb drip. Vital signs are unstable. Tachycardic, hypotensive. On vasopressor support. General: Resting in bed. HEENT: Intubated. LUNGS: Scattered rhonchi. HEART: Tachycardic. ABDOMEN: No distention. EXTREMITITES: No edema. Past Medical History Past Medical History: No Reported History History of Any Multi-Drug Resistant Organisms: None Reported Additional Past Surgical History / Comment(s): teeth pulled Past Anesthesia/Blood Transfusion Reactions: Unable to Obtain Past Psychological History: No Psychological Hx Reported Smoking Status: Current every day smoker Past Alcohol Use History: Abuse, Daily, Heavy Additional Past Alcohol Use History / Comment(s): Drinks luci daily and ver[employer]ara's whiskey Past Drug Use History: Marijuana Medications and Allergies Home Medications Medication Instructions Recorded Confirmed Type Budesonide/Formoterol Fumarate 2 puff INHALATION RT-BID 03/23/24 03/23/24 History [Symbicort 160-4.5 Mcg Inhaler] Furosemide [Lasix] 20 mg PO DAILY 03/23/24 03/23/24 History Potassium Chloride ER [K-Dur 20] 20 meq PO DAILY 03/23/24 03/23/24 History Allergies Allergy/AdvReac Type Severity Reaction Status Date / Time No Known Allergies Allergy Verified 03/23/24 19:45 Physical Exam Vitals: Vital Signs Temp Pulse Resp BP Pulse Ox FiO2 03/24/24 08:45 129 H 25 H 89 L 03/24/24 08:30 106 H 22 89 L 03/24/24 08:15 103 H 33 H 91 L 03/24/24 08:00 99.0 F 111 H 30 H 92 L 50 03/24/24 07:45 101 H 30 H 92 L 03/24/24 07:30 115 H 26 H 93 L 03/24/24 07:15 106 H 38 H 94 L 03/24/24 07:00 105 H 24 112/72 93 L 50 03/24/24 06:45 102 H 24 109/70 94 L 03/24/24 06:30 104 H 24 116/71 94 L 03/24/24 06:15 102 H 26 H 107/75 97 03/24/24 06:00 104 H 28 H 111/75 97 03/24/24 05:45 102 H 27 H 115/79 97 03/24/24 05:30 103 H 24 112/71 100 03/24/24 05:15 105 H 24 99 03/24/24 05:00 102 H 24 99/75 94 L 03/24/24 04:45 105 H 24 101/71 86 L 03/24/24 04:30 108 H 24 99/69 94 L 03/24/24 04:15 108 H 24 105/66 94 L 03/24/24 04:00 97.7 F 107 H 24 111/69 95 50 03/24/24 03:45 108 H 21 102/72 91 L 03/24/24 03:30 109 H 24 95 03/24/24 03:28 50 03/24/24 03:15 108 H 33 H 111/67 90 L 03/24/24 03:00 106 H 33 H 98/66 95 03/24/24 02:45 105 H 35 H 94/65 03/24/24 02:30 107 H 27 H 102/62 92 L 03/24/24 02:15 111 H 32 H 113/67 03/24/24 02:00 112 H 36 H 134/87 03/24/24 01:45 113 H 35 H 120/75 03/24/24 01:35 112 H 26 H 120/75 99 03/24/24 01:30 111 H 26 H 104/72 98 03/24/24 01:25 112 H 26 H 104/72 39 L 03/24/24 01:20 108 H 26 H 104/72 03/24/24 01:15 110 H 26 H 106/61 03/24/24 01:13 108 H 21 106/61 03/24/24 00:23 50 03/24/24 00:00 50 03/23/24 23:30 40 03/23/24 22:08 96.9 F L 110 H 20 85/47 96 100 03/23/24 22:00 103 H 20 85/47 100 03/23/24 21:55 104 H 24 85/58 100 03/23/24 21:50 102 H 13 93/53 100 03/23/24 21:45 101 H 18 87/63 100 03/23/24 21:40 101 H 16 84/53 99 03/23/24 21:35 100 17 82/55 100 03/23/24 21:30 99 19 78/53 100 03/23/24 21:25 98 24 81/53 99 03/23/24 21:20 96 24 78/47 100 03/23/24 21:15 97 20 80/50 100 03/23/24 21:10 97 24 81/55 100 03/23/24 20:50 95 20 81/55 100 03/23/24 20:45 96 20 88/53 100 03/23/24 20:40 96 20 81/52 100 03/23/24 20:35 96 20 80/50 99 03/23/24 20:30 95 23 84/54 99 03/23/24 20:25 96 20 80/51 100 03/23/24 20:20 96 21 78/52 100 03/23/24 20:15 94 24 77/50 100 03/23/24 20:10 95 31 H 76/51 98 03/23/24 20:05 92 14 70/48 99 03/23/24 20:00 93 21 75/47 100 03/23/24 19:55 94 23 74/51 100 03/23/24 19:50 93 23 77/51 99 03/23/24 19:45 94 47 H 79/57 100 03/23/24 19:40 94 27 H 89/48 100 03/23/24 19:35 105 H 13 94/60 99 03/23/24 19:30 97 18 99/64 100 03/23/24 19:26 100 03/23/24 19:25 98 23 99/65 100 03/23/24 19:10 103 H 21 131/71 100 03/23/24 19:05 97.4 F L 104 H 22 131/71 100 03/23/24 19:00 125/73 03/23/24 18:55 102 H 20 125/73 99 03/23/24 18:50 92 22 100/63 99 03/23/24 18:47 68 67/42 03/23/24 18:41 42 L 6 L 45/23 56 L Intake and Output 03/23/24 03/24/24 03/24/24 22:59 06:59 14:59 Intake Total 76.613 1622.596 253.680 Output Total 0 0 5 Balance 76.613 1622.596 248.680 Intake: IV 55 1561 176 Dextrose 5% in Water 1, 375 150 000 ml @ 75 mls/hr IV . [id number] MATT with Sodium Bicarb (1 Meq/ml) 150 ml Rx#:[id number] Dextrose 5%-0.45% NaCl 1, 55 165 000 ml @ 55 mls/hr IV . [id number] MATT Rx#:[id number] Pressure Bag 21 6 Sodium Chloride 0.9% 1, 1000 20 000 ml @ 999 mls/hr IV . Q1H1M ONE Rx#:[id number] Intake, IV Titration 21.613 61.596 77.680 Amount Norepinephrine 32 mg In 61.596 25.284 Sodium Chloride 0.9% 218 ml @ 0.03 MCG/KG/MIN 0. 785 mls/hr IV .Q24H ONE Rx#:[id number] Norepinephrine 4 mg In 21.613 Sodium Chloride 0.9% 250 ml @ 0.03 MCG/KG/MIN 6. 378 mls/hr IV .Q24H ONE Rx#:[id number] propofoL 1,000 mg In 52.396 Empty Bag 1 bag @ 15 MCG/ KG/MIN 5.022 mls/hr IV . [id number] MATT Rx#:[id number] Output: Urine 0 0 5 Other: Voiding Method Indwelling Catheter Weight 55.8 kg 62.7 kg ABP, PAP, CO, CI - Last 8 Hours Arterial Blood Pressure 58/39 Arterial Blood Pressure 75/44 Arterial Blood Pressure 65/42 Arterial Blood Pressure 77/44 Arterial Blood Pressure 79/43 Arterial Blood Pressure 76/50 Arterial Blood Pressure 79/50 Arterial Blood Pressure 84/46 Arterial Blood Pressure 85/47 Arterial Blood Pressure 86/49 Arterial Blood Pressure 91/50 Arterial Blood Pressure 98/52 Arterial Blood Pressure 97/51 Arterial Blood Pressure 97/51 Arterial Blood Pressure 90/50 Arterial Blood Pressure 82/47 Arterial Blood Pressure 61/44 Arterial Blood Pressure 78/51 Arterial Blood Pressure 79/52 Arterial Blood Pressure 82/51 Arterial Blood Pressure 87/50 Arterial Blood Pressure 90/51 Arterial Blood Pressure 92/50 Arterial Blood Pressure 89/50 Arterial Blood Pressure 85/48 Arterial Blood Pressure 86/52 Arterial Blood Pressure 81/44 Arterial Blood Pressure 114/51 Results - Lab Results Most recent lab results ABG pH 7.00 (7.35-7.45) L* 03/23/24 22:55 ABG pCO2 62 mmHg (35-45) H 03/23/24 22:55 ABG pO2 >420 mmHg (83-108) H 03/23/24 22:55 ABG HCO3 15 mmol/L (21-25) L 03/23/24 22:55 ABG O2 Saturation 99.6 % (94-97) H 03/23/24 22:55 Calcium 9.6 mg/dL (8.4-10.2) 03/24/24 03:50 Phosphorus 4.5 mg/dL (2.5-4.5) 03/24/24 03:50 Magnesium 2.5 mg/dL (1.6-2.3) H 03/24/24 03:50 03/24/24 03:50 03/24/24 07:17 Assessment and Plan Plan: Assessment: 1. Acute kidney injury secondary to ATN secondary to cardiac arrest. Creatinine 2.27 today. Creatinine 0.8 dated December 06, 2023. 2. Status post cardiac arrest requiring 3 doses of epinephrine. 3. Acute hypoxic respiratory failure. 4. Hyperkalemia secondary to acute kidney injury and hemolysis from CPR. Improved with medical management. Now hypokalemic and cautiously being replaced. 5. Metabolic acidosis secondary to acute kidney injury maintained on bicarb drip. 6. Anoxic brain injury with seizure-like activity. Plan: Maintain bicarb drip. Currently on high-dose vasopressor support. Family meeting occurred this morning. Plan is for comfort measures. Thank you for the consultation. I will continue to follow the patient with you during his hospital stay.
[2024-03-24] MEDS: PANTOPRAZOLE 40 MG/10 ML VIAL IV SCH (10:08)
[2024-03-24] MEDS: POTASSIUM BICARBONATE/CIT AC 20 MEQ TABLET.EFF PO SCH (10:08)
--- NOTE | 2024-03-24 10:43 | P.HPIM ---
History of Present Illness H&P Date: 03/24/24 Patient is a 58-year-old male came in to our ED unresponsive. Per ED documentation, patient experienced a witnessed fall and became unresponsive. EMS onsite started on CPR found to have PEA A-fib with RVR epinephrine given x 3. ROSC established after 202 minutes of CPR. Chest x-ray shows bilateral infiltrates and opacities, ET tube, IJ cath at the right and NG tube placed. EKG shows first-degree AV block DC interval 220 peaked T waves in all leads QTc 383. CT scan shows think no evidence of acute intracranial hemorrhage, mass effect, or midline shift with possible early loss of castillo-white matter differentiation. Ischemia with early acute infarct not excluded at this time. No acute fractures or misalignment of the cervical spine. WBC 6.9 hemoglobin 14.5 hematocrit 49.1 MCV 111.7 platelet 193 PT 11.8 INR 1.1 PTT 43.7. ABG shows pH of 7 CO2 62 O2 420 bicarb of 15 FiO2 100. Sodium 138 potassium 6.7 chloride 104 CO2 15 BUN 51 creatinine 2.05 glucose 100 Actiq acid 11.3 calcium 11.9 phosphorus 12.9 magnesium 3.1 AST 116 ALT 39 alk phos 60 troponin 0.106 BNP 4650 total protein 6.2 albumin 3.1. Urine shows 1+ protein EtOH less than 10 SARS-CoV-2 PCR detected. Patient was hypotensive at 45/23 pulse 42 respiratory rate low at 602 56 on mechanical ventilation. ED documentation reviewed. Review of systems: Cannot be obtained at this time Family history: Cannot be obtained at this time Social history: Tobacco: Per family, patient is a heavy current smoker Alcohol: Per family, patient has heavy daily alcohol intake Recreational drugs: Per family, patient uses marijuana Travel: Unknown Occupation: Unknown Physical examination: Vital signs reviewed General: in acute distress, unresponsive, appears older than stated age, underweight, on mechanical ventilator Derm: no unusual rashes/lesions, cool to touch mottled Head: atraumatic, normocephalic, symmetric Eyes: no lid lag, anicteric sclera, pupils equal round reactive to light ENT: Nose and ears atraumatic Neck: No cervical lymphadenopathy, trachea midline, supple Mouth: no lip lesion, mucus membranes moist Cardiovascular: tachycardic, no murmur Lungs: decreased breath sounds in all lung mann, accessory muscle use Abdominal: soft no distention, no guarding, abdominal breathing Ext: unable to assess muscle strength, no gross muscle atrophy, no contractures, positive dorsalis pedis pulse bilateral, no edema Neuro: unble to asses CN II-XI, GCS 3 Psych: unable to assess Assessment/Plan: #. Acute hypoxic respiratory failure likely due to ARDS #. Cardiac arrest #. PEA #. Transaminitis Patient newly diagnosed with COPD, known heavy smoker, and known daily heavy EtOH intake. Currently mechanically ventilated -Azithromycin 1 g IVPB -Ceftriaxone 2 g IVPB -Follow-up blood cultures -Continue Symbicort inhaler -Ativan per [facility] protocol -Continue management per ICU #. Acute kidney injury secondary to ATN secondary to cardiac arrest Patient oliguric at this time. Creatinine at 2.05 on admission. -Consult nephrology #Metabolic acidosis secondary to XAVI HCO3 at 15. Lactic acid at 11.3 -Continue bicarb drip -Consult nephrology #. Hyperkalemia secondary to acute kidney injury and hemolysis EKG shows peaked T waves. Potassium at 6.7 on admission. Now hypokalemic at 3.2. -Calcium gluconate 1 g IVPB -Lokelma 10 g p.o. once -K-lyte 20 mEq p.o. every hour -Resume potassium chloride 20 mEq p.o. OD #. Anoxic brain injury with seizure-like activity Patient hypotensive and unresponsive at this time. -EEG when possible -Continue Levophed, vasopressin -Consult neuro Chronic conditons: COPD, current smoker, current ETOH use DVT prophylaxis: Lovenox 30 mg SQ OD GI prophylaxis: Protonix 40 mg IV OD The patient is admitted with an anticipated greater than than 2 midnight stay for evaluation of acute hypoxic respiratory failure and XAVI CODE STATUS: No code Discussed with: Patient's family Prognosis guarded. Attestation I have seen and examined this patient with my resident , discussed the same with the resident/MELLISSA, and agree with the dictator's assessment and plan as written Dr. David kamara Past Medical History Past Medical History: No Reported History History of Any Multi-Drug Resistant Organisms: None Reported Additional Past Surgical History / Comment(s): teeth pulled Past Anesthesia/Blood Transfusion Reactions: Unable to Obtain Past Psychological History: No Psychological Hx Reported Smoking Status: Current every day smoker Past Alcohol Use History: Abuse, Daily, Heavy Additional Past Alcohol Use History / Comment(s): Drinks luci daily and [id number] Past Drug Use History: Marijuana Medications and Allergies Home Medications Medication Instructions Recorded Confirmed Type Budesonide/Formoterol Fumarate 2 puff INHALATION RT-BID 03/23/24 03/23/24 Histo ry [Symbicort 160-4.5 Mcg Inhaler] Furosemide [Lasix] 20 mg PO DAILY 03/23/24 03/23/24 History Potassium Chloride ER [K-Dur 20] 20 meq PO DAILY 03/23/24 03/23/24 History Allergies Allergy/AdvReac Type Severity Reaction Status Date / Time No Known Allergies Allergy Verified 03/23/24 19:45 Physical Exam Vitals: Vital Signs Temp Pulse Resp BP Pulse Ox FiO2 03/24/24 08:45 129 H 25 H 89 L 03/24/24 08:30 106 H 22 89 L 03/24/24 08:15 103 H 33 H 91 L 03/24/24 08:00 99.0 F 111 H 30 H 92 L 50 03/24/24 07:45 101 H 30 H 92 L 03/24/24 07:30 115 H 26 H 93 L 03/24/24 07:15 106 H 38 H 94 L 03/24/24 07:00 105 H 24 112/72 93 L 50 03/24/24 06:45 102 H 24 109/70 94 L 03/24/24 06:30 104 H 24 116/71 94 L 03/24/24 06:15 102 H 26 H 107/75 97 03/24/24 06:00 104 H 28 H 111/75 97 03/24/24 05:45 102 H 27 H 115/79 97 03/24/24 05:30 103 H 24 112/71 100 03/24/24 05:15 105 H 24 99 03/24/24 05:00 102 H 24 99/75 94 L 03/24/24 04:45 105 H 24 101/71 86 L 03/24/24 04:30 108 H 24 99/69 94 L 03/24/24 04:15 108 H 24 105/66 94 L 03/24/24 04:00 97.7 F 107 H 24 111/69 95 50 03/24/24 03:45 108 H 21 102/72 91 L 03/24/24 03:30 109 H 24 95 03/24/24 03:28 50 03/24/24 03:15 108 H 33 H 111/67 90 L 03/24/24 03:00 106 H 33 H 98/66 95 03/24/24 02:45 105 H 35 H 94/65 03/24/24 02:30 107 H 27 H 102/62 92 L 03/24/24 02:15 111 H 32 H 113/67 03/24/24 02:00 112 H 36 H 134/87 03/24/24 01:45 113 H 35 H 120/75 03/24/24 01:35 112 H 26 H 120/75 99 03/24/24 01:30 111 H 26 H 104/72 98 03/24/24 01:25 112 H 26 H 104/72 39 L 03/24/24 01:20 108 H 26 H 104/72 03/24/24 01:15 110 H 26 H 106/61 03/24/24 01:13 108 H 21 106/61 03/24/24 00:23 50 03/24/24 00:00 50 03/23/24 23:30 40 03/23/24 22:08 96.9 F L 110 H 20 85/47 96 100 03/23/24 22:00 103 H 20 85/47 100 03/23/24 21:55 104 H 24 85/58 100 03/23/24 21:50 102 H 13 93/53 100 03/23/24 21:45 101 H 18 87/63 100 03/23/24 21:40 101 H 16 84/53 99 03/23/24 21:35 100 17 82/55 100 03/23/24 21:30 99 19 78/53 100 03/23/24 21:25 98 24 81/53 99 03/23/24 21:20 96 24 78/47 100 03/23/24 21:15 97 20 80/50 100 03/23/24 21:10 97 24 81/55 100 03/23/24 20:50 95 20 81/55 100 03/23/24 20:45 96 20 88/53 100 03/23/24 20:40 96 20 81/52 100 03/23/24 20:35 96 20 80/50 99 03/23/24 20:30 95 23 84/54 99 03/23/24 20:25 96 20 80/51 100 03/23/24 20:20 96 21 78/52 100 03/23/24 20:15 94 24 77/50 100 03/23/24 20:10 95 31 H 76/51 98 03/23/24 20:05 92 14 70/48 99 03/23/24 20:00 93 21 75/47 100 03/23/24 19:55 94 23 74/51 100 03/23/24 19:50 93 23 77/51 99 03/23/24 19:45 94 47 H 79/57 100 03/23/24 19:40 94 27 H 89/48 100 03/23/24 19:35 105 H 13 94/60 99 03/23/24 19:30 97 18 99/64 100 03/23/24 19:26 100 03/23/24 19:25 98 23 99/65 100 03/23/24 19:10 103 H 21 131/71 100 03/23/24 19:05 97.4 F L 104 H 22 131/71 100 03/23/24 19:00 125/73 03/23/24 18:55 102 H 20 125/73 99 03/23/24 18:50 92 22 100/63 99 03/23/24 18:47 68 67/42 03/23/24 18:41 42 L 6 L 45/23 56 L Intake and Output 03/23/24 03/24/24 03/24/24 22:59 06:59 14:59 Intake Total 76.613 1622.596 253.680 Output Total 0 0 5 Balance 76.613 1622.596 248.680 Intake: IV 55 1561 176 Dextrose 5% in Water 1, 375 150 000 ml @ 75 mls/hr IV . [id number] MATT with Sodium Bicarb (1 Meq/ml) 150 ml Rx#:[id number] Dextrose 5%-0.45% NaCl 1, 55 165 000 ml @ 55 mls/hr IV . [id number] MATT Rx#:[id number] Pressure Bag 21 6 Sodium Chloride 0.9% 1, 1000 20 000 ml @ 999 mls/hr IV . Q1H1M ONE Rx#:[id number] Intake, IV Titration 21.613 61.596 77.680 Amount Norepinephrine 32 mg In 61.596 25.284 Sodium Chloride 0.9% 218 ml @ 0.03 MCG/KG/MIN 0. 785 mls/hr IV .Q24H ONE Rx#:[id number] Norepinephrine 4 mg In 21.613 Sodium Chloride 0.9% 250 ml @ 0.03 MCG/KG/MIN 6. 378 mls/hr IV .Q24H ONE Rx#:[id number] propofoL 1,000 mg In 52.396 Empty Bag 1 bag @ 15 MCG/ KG/MIN 5.022 mls/hr IV . [id number] [facility] Rx#:[id number] Output: Urine 0 0 5 Other: Voiding Method Indwelling Catheter Weight 55.8 kg 62.7 kg ABP, PAP, CO, CI - Last 8 Hours Arterial Blood Pressure 58/39 Arterial Blood Pressure 75/44 Arterial Blood Pressure 65/42 Arterial Blood Pressure 77/44 Arterial Blood Pressure 79/43 Arterial Blood Pressure 76/50 Arterial Blood Pressure 79/50 Arterial Blood Pressure 84/46 Arterial Blood Pressure 85/47 Arterial Blood Pressure 86/49 Arterial Blood Pressure 91/50 Arterial Blood Pressure 98/52 Arterial Blood Pressure 97/51 Arterial Blood Pressure 97/51 Arterial Blood Pressure 90/50 Arterial Blood Pressure 82/47 Arterial Blood Pressure 61/44 Arterial Blood Pressure 78/51 Arterial Blood Pressure 79/52 Arterial Blood Pressure 82/51 Arterial Blood Pressure 87/50 Arterial Blood Pressure 90/51 Arterial Blood Pressure 92/50 Arterial Blood Pressure 89/50 Arterial Blood Pressure 85/48 Arterial Blood Pressure 86/52 Arterial Blood Pressure 81/44 Arterial Blood Pressure 114/51 Arterial Blood Pressure 91/42 Results CBC & Chem 7: 03/24/24 03:50 03/24/24 07:17 Labs: Abnormal Lab Results - Last 24 Hours (Table) 03/23/24 03/23/24 03/23/24 Range/Units 18:57 19:01 19:01 WBC (3.8-10.6) k/uL MCV 111.7 H (80.0-100.0) fL MCHC 29.5 L (31.0-37.0) g/dL Plt Count (150-450) k/uL Neutrophils # (Manual) (1.3-7.7) k/uL Monocytes # (Manual) 1.66 H (0-1.0) k/uL Myelocytes # (Manual) 0.07 H (0) k/uL Nucleated RBCs 3 H (0-0) /100 WBC Macrocytosis Marked A APTT 43.7 H (22.0-30.0) sec ABG pH (7.35-7.45) ABG pCO2 (35-45) mmHg ABG pO2 (83-108) mmHg ABG HCO3 (21-25) mmol/L ABG Total CO2 (19-24) mmol/L ABG O2 Saturation (94-97) % VBG pH (7.31-7.41) VBG pCO2 (37-51) mmHg VBG HCO3 (24-28) mmol/L Potassium (3.5-5.1) mmol/L Chloride (98-107) mmol/L Carbon Dioxide (22-30) mmol/L BUN (9-20) mg/dL Creatinine (0.66-1.25) mg/dL Glucose (74-99) mg/dL Plasma Lactic Acid Audi (0.7-2.0) mmol/L Calcium (8.4-10.2) mg/dL Phosphorus (2.5-4.5) mg/dL Magnesium (1.6-2.3) mg/dL Total Bilirubin (0.2-1.3) mg/dL AST (17-59) U/L ALT (4-49) U/L Alkaline Phosphatase (38-126) U/L Troponin I (0.000-0.034) ng/mL Total Protein (6.3-8.2) g/dL Albumin (3.5-5.0) g/dL Urine Protein (Negative) Amorphous Sediment (None) /hpf Urine Bacteria (None) /hpf Urine Mucus (None) /hpf SARS-CoV-2 (PCR) Detected A (Not Detectd) 03/23/24 03/23/24 03/23/24 Range/Units 19:01 19:01 19:09 WBC (3.8-10.6) k/uL MCV (80.0-100.0) fL MCHC (31.0-37.0) g/dL Plt Count (150-450) k/uL Neutrophils # (Manual) (1.3-7.7) k/uL Monocytes # (Manual) (0-1.0) k/uL Myelocytes # (Manual) (0) k/uL Nucleated RBCs (0-0) /100 WBC Macrocytosis APTT (22.0-30.0) sec ABG pH (7.35-7.45) ABG pCO2 (35-45) mmHg ABG pO2 (83-108) mmHg ABG HCO3 (21-25) mmol/L ABG Total CO2 (19-24) mmol/L ABG O2 Saturation (94-97) % VBG pH (7.31-7.41) VBG pCO2 (37-51) mmHg VBG HCO3 (24-28) mmol/L Potassium 6.7 H* (3.5-5.1) mmol/L Chloride (98-107) mmol/L Carbon Dioxide 15 L (22-30) mmol/L BUN 51 H (9-20) mg/dL Creatinine 2.05 H (0.66-1.25) mg/dL Glucose 100 H (74-99) mg/dL Plasma Lactic Acid Audi 11.3 H* (0.7-2.0) mmol/L Calcium 11.9 H (8.4-10.2) mg/dL Phosphorus 12.9 H* (2.5-4.5) mg/dL Magnesium 3.1 H (1.6-2.3) mg/dL Total Bilirubin (0.2-1.3) mg/dL AST 116 H (17-59) U/L ALT (4-49) U/L Alkaline Phosphatase (38-126) U/L Troponin I 0.106 H* (0.000-0.034) ng/mL Total Protein 6.2 L (6.3-8.2) g/dL Albumin 3.1 L (3.5-5.0) g/dL Urine Protein (Negative) Amorphous Sediment (None) /hpf Urine Bacteria (None) /hpf Urine Mucus (None) /hpf SARS-CoV-2 (PCR) (Not Detectd) 03/23/24 03/23/24 03/23/24 Range/Units 19:16 19:42 22:55 WBC (3.8-10.6) k/uL MCV (80.0-100.0) fL MCHC (31.0-37.0) g/dL Plt Count (150-450) k/uL Neutrophils # (Manual) (1.3-7.7) k/uL Monocytes # (Manual) (0-1.0) k/uL Myelocytes # (Manual) (0) k/uL Nucleated RBCs (0-0) /100 WBC Macrocytosis APTT (22.0-30.0) sec ABG pH 7.00 L* (7.35-7.45) ABG pCO2 62 H (35-45) mmHg ABG pO2 >420 H (83-108) mmHg ABG HCO3 15 L (21-25) mmol/L ABG Total CO2 17 L (19-24) mmol/L ABG O2 Saturation 99.6 H (94-97) % VBG pH 6.90 L* (7.31-7.41) VBG pCO2 78 H* (37-51) mmHg VBG HCO3 15 L (24-28) mmol/L Potassium (3.5-5.1) mmol/L Chloride (98-107) mmol/L Carbon Dioxide (22-30) mmol/L BUN (9-20) mg/dL Creatinine (0.66-1.25) mg/dL Glucose (74-99) mg/dL Plasma Lactic Acid Audi (0.7-2.0) mmol/L Calcium (8.4-10.2) mg/dL Phosphorus (2.5-4.5) mg/dL Magnesium (1.6-2.3) mg/dL Total Bilirubin (0.2-1.3) mg/dL AST (17-59) U/L ALT (4-49) U/L Alkaline Phosphatase (38-126) U/L Troponin I (0.000-0.034) ng/mL Total Protein (6.3-8.2) g/dL Albumin (3.5-5.0) g/dL Urine Protein 1+ H (Negative) Amorphous Sediment Rare H (None) /hpf Urine Bacteria Occasional H (None) /hpf Urine Mucus Rare H (None) /hpf SARS-CoV-2 (PCR) (Not Detectd) 03/24/24 03/24/24 03/24/24 Range/Units 03:50 03:50 07:17 WBC 17.0 H (3.8-10.6) k/uL MCV 110.2 H (80.0-100.0) fL MCHC (31.0-37.0) g/dL Plt Count 107 L (150-450) k/uL Neutrophils # (Manual) 14.60 H (1.3-7.7) k/uL Monocytes # (Manual) (0-1.0) k/uL Myelocytes # (Manual) (0) k/uL Nucleated RBCs 6 H (0-0) /100 WBC Macrocytosis Marked A APTT (22.0-30.0) sec ABG pH (7.35-7.45) ABG pCO2 (35-45) mmHg ABG pO2 (83-108) mmHg ABG HCO3 (21-25) mmol/L ABG Total CO2 (19-24) mmol/L ABG O2 Saturation (94-97) % VBG pH (7.31-7.41) VBG pCO2 (37-51) mmHg VBG HCO3 (24-28) mmol/L Potassium 3.1 L 3.2 L (3.5-5.1) mmol/L Chloride 109 H (98-107) mmol/L Carbon Dioxide 19 L (22-30) mmol/L BUN 59 H (9-20) mg/dL Creatinine 2.27 H (0.66-1.25) mg/dL Glucose 100 H (74-99) mg/dL Plasma Lactic Acid Audi (0.7-2.0) mmol/L Calcium (8.4-10.2) mg/dL Phosphorus (2.5-4.5) mg/dL Magnesium 2.5 H (1.6-2.3) mg/dL Total Bilirubin 2.5 H (0.2-1.3) mg/dL AST 1790 H (17-59) U/L ALT 328 H (4-49) U/L Alkaline Phosphatase 142 H (38-126) U/L Troponin I (0.000-0.034) ng/mL Total Protein 5.4 L (6.3-8.2) g/dL Albumin 2.6 L (3.5-5.0) g/dL Urine Protein (Negative) Amorphous Sediment (None) /hpf Urine Bacteria (None) /hpf Urine Mucus (None) /hpf SARS-CoV-2 (PCR) (Not Detectd)
[2024-03-24 11:43] VITALS: PULSE 114
--- NOTE | 2024-03-24 11:48 | P.CNPUL ---
History of Present Illness Consult date: 03/24/24 Requesting physician: Nola Willard Chief complaint: Cardiopulmonary arrest. History of present illness: Pulmonary consultation dated March 24, 2024. 58-year-old male with a history of heavy tobacco use, and heavy alcohol use, who was brought into the emergency department, by EMS, with cardiopulmonary arrest. The details of the arrest, are not clear, but apparently, there was prolonged resuscitation, lasting 20 or 25 minutes, and it is unclear how long the patient was down before cardiopulmonary resuscitation began. The patient is seen in the intensive care unit. I was on the phone last night with the nurses throughout the night. I also spoke to the ER physician. He is on volume assist-control, rate 24, tidal volume 500, FiO2 50%, and PEEP of 5. Blood gases show pO2 of 67, pCO2 of 56, pH is 7.12. The patient is getting D5 W with 3 ampoules of sodium bicarb and at 75 cc an hour, norepinephrine at 37 mcg/min, vasopressin at 0.04 units/min, and saline at KVO. The patient is not producing any urine. Current laboratory data includes a white count of 17, hemoglobin 15.2, hematocrit 49, and platelet count of 107,000. Sodium 143, potassium 3.2, chlorides 109, CO2 19, anion gap 15, BUN 59, creatinine 2.27. Glucose is at 100. AST is 1790. ALT 328. Albumin is 2.6. Stools were positive for occult blood. Chest x-ray shows diffuse bilateral infiltrates. CT of the brain shows possible early loss of castillo-white matter differentiation. There is no evidence of acute intracranial hemorrhage or mass effect. No acute fracture noted in the cervical spine. Review of Systems REVIEW OF SYSTEMS: Could not be obtained. CONSTITUTIONAL: [Negative.] NEUROLOGIC: [ Negative.] HEENT: [ Negative.] CARDIAC: [Negative.] PULMONARY: [Negative.] GI: [Negative.] : [Negative.] RHEUMATOLOGIC: [ Negative.] IMMUNOLOGIC: [ Negative.] ENDOCRINE: [Negative. ] DERMATOLOGIC: [Negative.] Past Medical History Past Medical History: No Reported History History of Any Multi-Drug Resistant Organisms: None Reported Additional Past Surgical History / Comment(s): teeth pulled Past Anesthesia/Blood Transfusion Reactions: Unable to Obtain Past Psychological History: No Psychological Hx Reported Smoking Status: Current every day smoker Past Alcohol Use History: Abuse, Daily, Heavy Additional Past Alcohol Use History / Comment(s): Drinks luci daily and vergara's whiskey Past Drug Use History: Marijuana Medications and Allergies Home Medications Medication Instructions Recorded Confirmed Type Budesonide/Formoterol Fumarate 2 puff INHALATION RT-BID 03/23/24 03/23/24 History [Symbicort 160-4.5 Mcg Inhaler] Furosemide [Lasix] 20 mg PO DAILY 03/23/24 03/23/24 History Potassium Chloride ER [K-Dur 20] 20 meq PO DAILY 03/23/24 03/23/24 History Allergies Allergy/AdvReac Type Severity Reaction Status Date / Time No Known Allergies Allergy Verified 03/23/24 19:45 Physical Exam Osteopathic Statement: *. No significant issues noted on an osteopathic structural exam other than those noted in the History and Physical/Consult. Vitals: Vital Signs Temp Pulse Resp BP Pulse Ox FiO2 03/24/24 11:09 50 03/24/24 10:00 112 H 26 H 86 L 03/24/24 09:45 109 H 26 H 85 L 03/24/24 09:30 103 H 26 H 95 03/24/24 09:15 104 H 24 94 L 03/24/24 09:00 105 H 24 90 L 03/24/24 08:45 129 H 25 H 89 L 03/24/24 08:30 106 H 24 89 L 03/24/24 08:15 103 H 33 H 91 L 03/24/24 08:00 99.0 F 111 H 30 H 92 L 50 03/24/24 07:45 101 H 30 H 92 L 03/24/24 07:30 115 H 26 H 93 L 03/24/24 07:15 106 H 38 H 94 L 03/24/24 07:00 105 H 24 112/72 93 L 50 03/24/24 06:45 102 H 24 109/70 94 L 03/24/24 06:30 104 H 24 116/71 94 L 03/24/24 06:15 102 H 26 H 107/75 97 03/24/24 06:00 104 H 28 H 111/75 97 03/24/24 05:45 102 H 27 H 115/79 97 03/24/24 05:30 103 H 24 112/71 100 03/24/24 05:15 105 H 24 99 03/24/24 05:00 102 H 24 99/75 94 L 03/24/24 04:45 105 H 24 101/71 86 L 03/24/24 04:30 108 H 24 99/69 94 L 03/24/24 04:15 108 H 24 105/66 94 L 03/24/24 04:00 97.7 F 107 H 24 111/69 95 50 03/24/24 03:45 108 H 21 102/72 91 L 03/24/24 03:30 109 H 24 95 03/24/24 03:28 50 03/24/24 03:15 108 H 33 H 111/67 90 L 03/24/24 03:00 106 H 33 H 98/66 95 03/24/24 02:45 105 H 35 H 94/65 03/24/24 02:30 107 H 27 H 102/62 92 L 03/24/24 02:15 111 H 32 H 113/67 03/24/24 02:00 112 H 36 H 134/87 03/24/24 01:45 113 H 35 H 120/75 03/24/24 01:35 112 H 26 H 120/75 99 03/24/24 01:30 111 H 26 H 104/72 98 03/24/24 01:25 112 H 26 H 104/72 39 L 03/24/24 01:20 108 H 26 H 104/72 03/24/24 01:15 110 H 26 H 106/61 03/24/24 01:13 108 H 21 106/61 03/24/24 00:23 50 03/24/24 00:00 50 03/23/24 23:30 40 03/23/24 22:08 96.9 F L 110 H 20 85/47 96 100 03/23/24 22:00 103 H 20 85/47 100 03/23/24 21:55 104 H 24 85/58 100 03/23/24 21:50 102 H 13 93/53 100 03/23/24 21:45 101 H 18 87/63 100 03/23/24 21:40 101 H 16 84/53 99 03/23/24 21:35 100 17 82/55 100 03/23/24 21:30 99 19 78/53 100 03/23/24 21:25 98 24 81/53 99 03/23/24 21:20 96 24 78/47 100 08/29/24 21:15 97 20 80/50 100 03/23/24 21:10 97 24 81/55 100 03/23/24 20:50 95 20 81/55 100 03/23/24 20:45 96 20 88/53 100 03/23/24 20:40 96 20 81/52 100 03/23/24 20:35 96 20 80/50 99 03/23/24 20:30 95 23 84/54 99 03/23/24 20:25 96 20 80/51 100 03/23/24 20:20 96 21 78/52 100 03/23/24 20:15 94 24 77/50 100 03/23/24 20:10 95 31 H 76/51 98 03/23/24 20:05 92 14 70/48 99 03/23/24 20:00 93 21 75/47 100 03/23/24 19:55 94 23 74/51 100 03/23/24 19:50 93 23 77/51 99 03/23/24 19:45 94 47 H 79/57 100 03/23/24 19:40 94 27 H 89/48 100 03/23/24 19:35 105 H 13 94/60 99 03/23/24 19:30 97 18 99/64 100 03/23/24 19:26 100 03/23/24 19:25 98 23 99/65 100 03/23/24 19:10 103 H 21 131/71 100 03/23/24 19:05 97.4 F L 104 H 22 131/71 100 03/23/24 19:00 125/73 03/23/24 18:55 102 H 20 125/73 99 03/23/24 18:50 92 22 100/63 99 03/23/24 18:47 68 67/42 03/23/24 18:41 42 L 6 L 45/23 56 L Intake and Output 03/23/24 03/24/24 03/24/24 22:59 06:59 14:59 Intake Total 76.613 1622.596 409.680 Output Total 0 0 5 Balance 76.613 1622.596 404.680 Intake: IV 55 1561 332 Dextrose 5% in Water 1, 375 300 000 ml @ 75 mls/hr IV . [id number] MATT with Sodium Bicarb (1 Meq/ml) 150 ml Rx#:[id number] Dextrose 5%-0.45% NaCl 1, 55 165 000 ml @ 55 mls/hr IV . [id number] [facility] Rx#:[id number] Pressure Bag 21 12 Sodium Chloride 0.9% 1, 1000 20 000 ml @ 999 mls/hr IV . Q1H1M ONE Rx#:[id number] Intake, IV Titration 21.613 61.596 77.680 Amount Norepinephrine 32 mg In 61.596 25.284 Sodium Chloride 0.9% 218 ml @ 0.03 MCG/KG/MIN 0. 785 mls/hr IV .Q24H ONE Rx#:[id number] Norepinephrine 4 mg In 21.613 Sodium Chloride 0.9% 250 ml @ 0.03 MCG/KG/MIN 6. 378 mls/hr IV .Q24H ONE Rx#:[id number] propofoL 1,000 mg In 52.396 Empty Bag 1 bag @ 15 MCG/ KG/MIN 5.022 mls/hr IV . [id number] [facility] Rx#:[id number] Output: Urine 0 0 5 Other: Voiding Method Indwelling Catheter Weight 55.8 kg 62.7 kg ABP, PAP, CO, CI - Last 8 Hours Arterial Blood Pressure 120/62 Arterial Blood Pressure 122/63 Arterial Blood Pressure 120/62 Arterial Blood Pressure 116/59 Arterial Blood Pressure 70/44 Arterial Blood Pressure 58/39 Arterial Blood Pressure 75/44 Arterial Blood Pressure 65/42 Arterial Blood Pressure 77/44 Arterial Blood Pressure 79/43 Arterial Blood Pressure 76/50 Arterial Blood Pressure 79/50 Arterial Blood Pressure 84/46 Arterial Blood Pressure 85/47 Arterial Blood Pressure 86/49 Arterial Blood Pressure 91/50 Arterial Blood Pressure 98/52 Arterial Blood Pressure 97/51 Arterial Blood Pressure 97/51 Arterial Blood Pressure 90/50 Arterial Blood Pressure 82/47 Arterial Blood Pressure 61/44 Arterial Blood Pressure 78/51 Arterial Blood Pressure 79/52 Arterial Blood Pressure 82/51 Arterial Blood Pressure 87/50 No acute distress, currently on the ventilator, without any sedation, with an orally placed endotracheal tube. HEENT examination is grossly unremarkable. Neck supple. Full range of motion. No adenopathy thyromegaly or neck vein distention. Cardiovascular examination reveals regular rhythm rate. S1-S2 normal. No S3 or S4. No discernible murmur noted. Heart rate 114 bpm. Heart sounds are distant. Lungs reveal scattered bilateral rhonchi. Breath sounds are equal bilaterally. Saturations are quite low. No wheezes or crackles. Abdomen soft without bowel sounds. Extremities are cold. No edema. Skin is without rash or lesion. Neurologic examination cannot be adequately assessed. Results - Laboratory Findings CBC and BMP: 03/24/24 03:50 03/24/24 07:17 ABG ABG pH 7.00 (7.35-7.45) L* 03/23/24 22:55 ABG pCO2 62 mmHg (35-45) H 03/23/24 22:55 ABG pO2 >420 mmHg (83-108) H 03/23/24 22:55 ABG O2 Saturation 99.6 % (94-97) H 03/23/24 22:55 PT/INR, D-dimer PT 11.8 sec (10.0-12.5) 03/23/24 19:01 INR 1.1 (<1.2) 03/23/24 19:01 Abnormal lab findings: Abnormal Labs 03/23/24 03/23/24 03/23/24 18:57 19:01 19:01 WBC MCV 111.7 H MCHC 29.5 L Plt Count Neutrophils # (Manual) Monocytes # (Manual) 1.66 H Myelocytes # (Manual) 0.07 H Nucleated RBCs 3 H Macrocytosis Marked A APTT 43.7 H ABG pH ABG pCO2 ABG pO2 ABG HCO3 ABG Total CO2 ABG O2 Saturation VBG pH VBG pCO2 VBG HCO3 Potassium Chloride Carbon Dioxide BUN Creatinine Glucose Plasma Lactic Acid Audi Calcium Phosphorus Magnesium Total Bilirubin AST ALT Alkaline Phosphatase Troponin I Total Protein Albumin Urine Protein Amorphous Sediment Urine Bacteria Urine Mucus SARS-CoV-2 (PCR) Detected A 03/23/24 03/23/24 03/23/24 19:01 19:01 19:09 WBC MCV MCHC Plt Count Neutrophils # (Manual) Monocytes # (Manual) Myelocytes # (Manual) Nucleated RBCs Macrocytosis APTT ABG pH ABG pCO2 ABG pO2 ABG HCO3 ABG Total CO2 ABG O2 Saturation VBG pH VBG pCO2 VBG HCO3 Potassium 6.7 H* Chloride Carbon Dioxide 15 L BUN 51 H Creatinine 2.05 H Glucose 100 H Plasma Lactic Acid Audi 11.3 H* Calcium 11.9 H Phosphorus 12.9 H* Magnesium 3.1 H Total Bilirubin AST 116 H ALT Alkaline Phosphatase Troponin I 0.106 H* Total Protein 6.2 L Albumin 3.1 L Urine Protein Amorphous Sediment Urine Bacteria Urine Mucus SARS-CoV-2 (PCR) 03/23/24 03/23/24 03/23/24 19:16 19:42 22:55 WBC MCV MCHC Plt Count Neutrophils # (Manual) Monocytes # (Manual) Myelocytes # (Manual) Nucleated RBCs Macrocytosis APTT ABG pH 7.00 L* ABG pCO2 62 H ABG pO2 >420 H ABG HCO3 15 L ABG Total CO2 17 L ABG O2 Saturation 99.6 H VBG pH 6.90 L* VBG pCO2 78 H* VBG HCO3 15 L Potassium Chloride Carbon Dioxide BUN Creatinine Glucose Plasma Lactic Acid Audi Calcium Phosphorus Magnesium Total Bilirubin AST ALT Alkaline Phosphatase Troponin I Total Protein Albumin Urine Protein 1+ H Amorphous Sediment Rare H Urine Bacteria Occasional H Urine Mucus Rare H SARS-CoV-2 (PCR) 03/24/24 03/24/24 03/24/24 03:50 03:50 07:17 WBC 17.0 H MCV 110.2 H MCHC Plt Count 107 L Neutrophils # (Manual) 14.60 H Monocytes # (Manual) Myelocytes # (Manual) Nucleated RBCs 6 H Macrocytosis Marked A APTT ABG pH ABG pCO2 ABG pO2 ABG HCO3 ABG Total CO2 ABG O2 Saturation VBG pH VBG pCO2 VBG HCO3 Potassium 3.1 L 3.2 L Chloride 109 H Carbon Dioxide 19 L BUN 59 H Creatinine 2.27 H Glucose 100 H Plasma Lactic Acid Audi Calcium Phosphorus Magnesium 2.5 H Total Bilirubin 2.5 H AST 1790 H ALT 328 H Alkaline Phosphatase 142 H Troponin I Total Protein 5.4 L Albumin 2.6 L Urine Protein Amorphous Sediment Urine Bacteria Urine Mucus SARS-CoV-2 (PCR) - Diagnostic Findings Chest x-ray: image reviewed Assessment and Plan Assessment: [id number] cardiopulmonary arrest, with prolonged downtime, and prolonged resuscitation. Probable severe anoxic brain injury. Severe anion gap metabolic acidosis. Acute kidney injury, likely secondary to hypotension. Shock liver. Hypokalemia. History of chronic tobacco use. History of chronic alcohol abuse. Plan: Plan dated March 24, 2024. I had a long conversation, with the nurses, and the ER physician last night. In addition, I was up through the night, receiving laboratory data, and blood gases. Adjustments were made. I also had a long conversation with family members today. The patient's son, was not at that meeting, but is on his way to the hospital. The family is all in agreement, to make the patient comfort care, but was waiting for the son, who is her medical decision-maker, to confirm that decision. They were confident that he would feel likewise. Labs, x-rays, and medications are reviewed. The patient is on 37 mcg/min of norepinephrine, and 0.04 units/min of vasopressin. Additional recommendations and suggestions are forthcoming. The patient has a history of heavy tobacco and alcohol use, and likely has underlying COPD. His overall health is poor. Time with Patient: Greater than 30
[2024-03-24] MEDS ORDERED: GLYCOPYRROLATE 0.2 MG/ML 2 ML VIAL IVP PRN (12:10)
[2024-03-24] MEDS ORDERED: LORazepam 2 MG/ML INJ IV PRN (12:10)
[2024-03-24] MEDS ORDERED: ATROPINE OPHTH SOLN 1% 5ML BTL SUBLINGUAL PRN (12:10)
[2024-03-24] MEDS ORDERED: MORPHINE SULFATE 2 MG/ML SYRINGE IV PRN (12:10)
[2024-03-24 12:15] VITALS: RESP 17; TEMP 100.3
[2024-03-24] MEDS ORDERED: MORPHINE SULFATE (100 MG/2 ML) 100 MG in SODIUM CHLORIDE 0.9% 100 ML IV SCH (12:15)
[2024-03-24] MEDS ORDERED: SCOPOLAMINE 1 MG/72 HR PATCH TRANSDERM SCH (12:15)
[2024-03-24] MEDS: MORPHINE SULFATE 4 MG/ML SYRINGE IV PRN (12:31)
[2024-03-24] MEDS ORDERED: SYMBICORT 160-4.5 MCG INHALER INHALATION SCH (20:00)
[2024-03-25] MEDS ORDERED: ENOXAPARIN 30 MG/0.3 ML SYRINGE SQ SCH (09:00)
[2024-03-25] MEDS ORDERED: POTASSIUM CHLORIDE ER 20 MEQ TAB.ER PO SCH (09:00)
--- NOTE | 2024-04-17 06:00 | CDI ---
Documentation Clarification Form Date: 04/17/2024 05:29:19 AM From: Janie French Admit Date: 03/18/2024 02:07:00 PM Patient Name: Mikki Swartz Visit Number: [id number] Discharge Date: 03/23/2024 03:00:00 PM ATTENTION: The Clinical Documentation Specialists (CDI) and [facility] Coding Staff appreciate your assistance in clarifying documentation. Please respond to the clarification below the line at the bottom and electronically sign. The CDI & [facility] Coding staff will review the response and follow-up if needed. Please note: Queries are made part of the Legal Health Record. If you have any questions, please contact the author of this message via ITS. Doctor/Provider: Ponce Meade Conflicting documentation has been found in the medical record. As attending physician, please provide clarification. PN 03/19 "53 year old female with triple negative breast cancer on chemotherapy presenting with neutropenic sepsis." DCS "Febrile neutropenia SIRS" History/Risk Factors: Triple negative breast cancer chemotherapy causing neutropenia Clinical Indicators: WBC's 1.5 Treatment: Broad-specturm antibiotics Vanco and Cefepime Please clarify which diagnosis is most appropriate: [ ] Neutropenic sepsis, likely. [ ] Febrile neutropnia SIRS [ ] Other (please specify) [ ] Unable to determine MTDD
--- NOTE | 2024-05-01 10:08 | P.DS ---
Providers Date of admission: 03/23/24 19:50 Expected date of discharge: 03/24/24 Attending physician: Nola Willard Consults: 03/23/24 19:50 Consult Physician Stat Consulting Provider: Crescencio De Los Santos Consult Reason/Comments: icu Do you want consulting provider notified?: Yes 03/24/24 07:04 Consult Physician Routine Consulting Provider: Hernando English Consult Reason/Comments: Hyperkalemia, Anuria Do you want consulting provider notified?: Already Contacted Primary care physician: Stated None Hospital Course: Discharge diagnoses; #. Acute hypoxic respiratory failure likely due to ARDS #. Cardiac arrest #. PEA #. Transaminitis #. Acute kidney injury secondary to ATN secondary to cardiac arrest #Metabolic acidosis secondary to XAVI #. Hyperkalemia secondary to acute kidney injury and hemolysis #. Anoxic brain injury with seizure-like activity Hospital course; Patient is a 58-year-old male came in to our ED unresponsive. Per ED doc umentation, patient experienced a witnessed fall and became unresponsive. EMS onsite started on CPR found to have PEA A-fib with RVR epinephrine given x 3. ROSC established after 2024 minutes of CPR. Chest x-ray shows bilateral infiltrates and opacities, ET tube, IJ cath at the right and NG tube placed. EKG shows first-degree AV block NM interval 220 peaked T waves in all leads QTc 383. CT scan shows think no evidence of acute intracranial hemorrhage, mass effect, or midline shift with possible early loss of castillo-white matter differentiation. Ischemia with early acute infarct not excluded at this time. No acute fractures or misalignment of the cervical spine. WBC 6.9 hemoglobin 14.5 hematocrit 49.1 MCV 111.7 platelet 193 PT 11.8 INR 1.1 PTT 43.7. ABG shows pH of 7 CO2 62 O2 420 bicarb of 15 FiO2 100. Sodium 138 potassium 6.7 chloride 104 CO2 15 BUN 51 creatinine 2.05 glucose 100 Actiq acid 11.3 calcium 11.9 phosphorus 12.9 magnesium 3.1 AST 116 ALT 39 alk phos 60 troponin 0.106 BNP 4650 total protein 6.2 albumin 3.1. Urine shows 1+ protein EtOH less than 10 SARS-CoV-2 PCR detected. Patient was hypotensive at 45/23 pulse 42 respiratory rate low at 602 56 on mechanical ventilation. Patient was admitted to ICU, nephrology and pulmonology were consulted. Patient was transitioned to comfort care, patient was pronounced on 03/24/2024 at 1243. Dictation was produced using [employer] dictation software. please excuse any grammatical, word or spelling errors. Patient Condition at Discharge: Critical Plan - Discharge Summary Discharge Rx Participant: No New Discharge Prescriptions: No Action Potassium Chloride ER [K-Dur 20] 20 meq PO DAILY Furosemide [Lasix] 20 mg PO DAILY Budesonide/Formoterol Fumarate [Symbicort 160-4.5 Mcg Inhaler] 2 puff INHALATION RT-BID Discharge Medication List Budesonide/Formoterol Fumarate [Symbicort 160-4.5 Mcg Inhaler] 2 puff INHALATION RT-BID 03/23/24 [History] Furosemide [Lasix] 20 mg PO DAILY 03/23/24 [History] Potassium Chloride ER [K-Dur 20] 20 meq PO DAILY 03/23/24 [History] Follow up Appointment(s)/Referral(s): None,Stated [Primary Care Provider] - 1-2 days Discharge Disposition: - Preliminary Cause of Preliminary Cause of : Cardiac arrest
== END 2024-03-24 16:21 | disposition expired | DRG 469 ==
LOC: EC 18:38 → 2SICU 19:50
PROVIDERS: ADMIT Hospitalist; ATTEND Hospitalist
PROC: 5A1935Z Respiratory Ventilation, Less than 24 Consecutive Hours (ICD-10-PCS; principal; 2024-03-23)
PROC: 0BH17EZ Insertion of Endotracheal Airway into Trachea, Via Natural or Artificial Opening (ICD-10-PCS; principal; 2024-03-23)
PROC: 3E043XZ Introduction of Vasopressor into Central Vein, Percutaneous Approach (ICD-10-PCS; 2024-03-23)
PROC: 02HV33Z Insertion of Infusion Device into Superior Vena Cava, Percutaneous Approach (ICD-10-PCS; 2024-03-23)
PROC: 4A133J1 Monitoring of Arterial Pulse, Peripheral, Percutaneous Approach (ICD-10-PCS; 2024-03-23)
PROC: 03HY32Z Insertion of Monitoring Device into Upper Artery, Percutaneous Approach (ICD-10-PCS; 2024-03-23)
PROC: 4A133B1 Monitoring of Arterial Pressure, Peripheral, Percutaneous Approach (ICD-10-PCS; 2024-03-23)
DX: N17.0 Acute kidney failure with tubular necrosis (principal); K72.00 Acute and subacute hepatic failure without coma; I48.91 Unspecified atrial fibrillation; J96.01 Acute respiratory failure with hypoxia; R74.01 Elevation of levels of liver transaminase levels; I95.9 Hypotension, unspecified; F10.10 Alcohol abuse, uncomplicated; I44.0 Atrioventricular block, first degree; Z66 Do not resuscitate; Z51.5 Encounter for palliative care; G93.1 Anoxic brain damage, not elsewhere classified; F17.200 Nicotine dependence, unspecified, uncomplicated; E87.6 Hypokalemia; I46.9 Cardiac arrest, cause unspecified; U07.1 COVID-19; E87.20 Acidosis, unspecified; E87.5 Hyperkalemia; Z79.51 Long term (current) use of inhaled steroids; Z79.899 Other long term (current) drug therapy
CPT/HCPCS: 36415; 36600; 70450; 71045; 72125; 80053; 80320; 81001; 82272; 82803; 82805; 83605; 83735; 83880; 84100; 84132; 84484; 85025; 85610; 85730; 87040; 87636; 93005; 94002; 94003; 99291